=== PATIENT | female | born 1995 | race Caucasian/White ===

== ENCOUNTER 2017-06-16 00:31 | Emergency (ER) | payer BC, OTHER ==
[2017-06-16 00:38] VITALS: RESP 18
--- NOTE | 2017-06-16 02:40 | ED ---
General Adult HPI - General Chief complaint: Skin/Abscess/Foreign Body Stated complaint: abcess Time Seen by Provider: 06/16/17 02:08 Source: patient, RN notes reviewed Mode of arrival: ambulatory Limitations: no limitations - History of Present Illness Initial comments: Patient 22-year-old female who presents emergency room today with chief complaint of possible dental abscess. She does admit that she's had some increased pain to the right upper side of the gumline. She does admit that she' s felt some drainage and discharge from this area. She states she does not have an appointment with her dentist for 2 days and did not want with a long. She denies any other complaints or symptoms. Patient denies any recent fever, chills, shortness of breath, chest pain, back pain, abdominal pain, nausea or vomiting, numbness or tingling, dysuria or hematuria, constipation or diarrhea, headaches or visual changes, or any other complaints. - Related Data Previous Rx's Medication Instructions Recorded Hydrocodone/Acetaminophen [Clyo 1 each PO Q6HR PRN #10 tab 06/16/17 5-325] Ibuprofen [Motrin] 600 mg PO Q6HR PRN #30 day 06/16/17 Penicillin V Potassium [Pen Vee K] 500 mg PO QID 10 Days 06/16/17 Allergies Allergy/AdvReac Type Severity Reaction Status Date / Time No Known Allergies Allergy Verified 06/16/17 00:37 Review of Systems ROS Statement: Those systems with pertinent positive or pertinent negative responses have been documented in the HPI. ROS Other: All systems not noted in ROS Statement are negative. Past Medical History Past Medical History: No Reported History History of Any Multi-Drug Resistant Organisms: None Reported Past Surgical History: No Surgical Hx Reported Past Psychological History: No Psychological Hx Reported Smoking Status: Never smoker Past Alcohol Use History: Occasional Past Drug Use History: None Reported General Exam - General Exam Comments Initial Comments: General: The patient is awake and alert, in no distress, and does not appear acutely ill. Eye: Pupils are equal, round and reactive to light, extra-ocular movements are intact. No nystagmus. There is normal conjunctiva bilaterally. No signs of icterus. Ears, nose, mouth and throat: There are moist mucous membranes and no oral lesions. Patient does have some redness irritation to the right upper gum line of teeth 2 through 4. Febrile ulcerated areas on the outside of the gums. No obvious abscess. Uvula midline. Patient also having difficulty. Neck: The neck is supple, there is no tenderness or JVD. Cardiovascular: There is a regular rate and rhythm. No murmur, rub or gallop is appreciated. Respiratory: Lungs are clear to auscultation, respirations are non-labored, breath sounds are equal. No wheezes, stridor, rales, or rhonchi. Musculoskeletal: Normal ROM, no tenderness. Strength 5/5. Sensation intact. Pulses equal bilaterally 2+. Neurological: A&O x 3. CN II-XII intact, There are no obvious motor or sensory deficits. Coordination appears grossly intact. Speech is normal. Skin: Skin is warm and dry and no rashes or lesions are noted. Psychiatric: Cooperative, appropriate mood & affect, normal judgment. Limitations: no limitations Course Vital Signs 06/16/17 00:34 Temperature 100.3 F H Pulse Rate 74 Respiratory 18 Rate Blood Pressure 186/80 O2 Sat by Pulse 98 Oximetry Disposition Clinical Impression: Pain, dental Disposition: HOME SELF-CARE Condition: Good Instructions: Toothache (ED) Additional Instructions: Please use medication as discussed. Please follow-up with dentist/family doctor in the next 2 days of symptoms have not improved. Please return to emergency room if the symptoms increase or worsen or for any other concerns. Prescriptions: Hydrocodone/Acetaminophen [Clyo 5-325] 1 each PO Q6HR PRN #10 tab PRN Reason: Pain Ibuprofen [Motrin] 600 mg PO Q6HR PRN #30 day PRN Reason: Pain Penicillin V Potassium [Pen Vee K] 500 mg PO QID 10 Days Referrals: None,Stated [Primary Care Provider] - 1-2 days Time of Disposition: 03:08
[2017-06-16] MEDS ORDERED: IBUPROFEN 600 MG STARTER PACK 4 TAB BTL PO STA (03:06)
[2017-06-16] MEDS ORDERED: PENICILLIN VK 500MG STARTER 4 TAB BTL PO STA (03:06)
[2017-06-16 03:23] VITALS: BP 160/98; PULSE 77; TEMP 98
== END 2017-06-16 03:23 | disposition home or self-care (01) ==
LOC: EC 00:31
DX: K08.89 Other specified disorders of teeth and supporting structures (principal)
CPT/HCPCS: 99282

== ENCOUNTER → 2020-10-17 | Outpatient (CLI) | payer OTHER ==
[2020-10-17 15:09] LABS: Luteinizing Hormone 5.3 mIU/mL
[2020-10-17 15:10] LABS: Estradiol 92.9 pg/mL
== END | disposition home or self-care (01) ==
LOC: LABWHC1 08:18
PROVIDERS: ATTEND Family Medicine
DX: N91.2 Amenorrhea, unspecified (principal)
CPT/HCPCS: 36415; 82533; 82670; 83001; 83002; 84144

== ENCOUNTER 2021-06-29 19:58 | Emergency (ER) | payer OTHER ==
[2021-06-29 20:04] VITALS: TEMP 98.8
[2021-06-29] MEDS ORDERED: KETOROLAC 15 MG/ML 1 ML VIAL IVP STA (20:27)
[2021-06-29] MEDS ORDERED: SODIUM CHLORIDE 0.9% 1,000 ML IV ONE (20:27)
[2021-06-29] MEDS ORDERED: ACETAMINOPHEN TAB 500 MG TAB PO STA (20:33)
--- NOTE | 2021-06-29 20:35 | ED ---
Recheck HPI - General Chief Complaint: Recheck/Abnormal Lab/Rx Stated Complaint: SOB, COVID+ Time Seen by Provider: 06/29/21 20:07 Source: patient Mode of arrival: ambulatory Limitations: no limitations - History of Present Illness Initial Comments: 26 year-old female patient who was diagnosed with COVID yesterday presents to the emergency department for evaluation of dizziness, cough, and shortness of breath. States she started having symptoms on . States today she has felt very flushed and hot. She states that earlier today she has had racing heart. She reports body aches and weakness. Reports some mild nausea and headache. She denies any chronic medical conditions. She does take control and does not think she is . Patient denies any recent rash, abdominal pain, vomiting, diarrhea, constipation, back pain, numbness, tingling, dizziness, weakness, hematuria, dysuria, urinary urgency, urinary frequency, headache, visual changes, or any other complaints. - Related Data Home Medications Medication Instructions Recorded Confirmed Ascorbic Acid [Vitamin C] 1,000 mg PO DAILY 06/29/21 06/29/21 Ibuprofen [Motrin Ib] 600 mg PO Q8H PRN 06/29/21 06/29/21 Norethindrone-E.estradiol-Iron 1 tab PO DAILY 06/29/21 06/29/21 [Aurovela Fe 1.5 mg-30 Mcg Tab] Allergies Allergy/AdvReac Type Severity Reaction Status Date / Time No Known Allergies Allergy Verified 06/29/21 20:18 Review of Systems ROS Statement: Those systems with pertinent positive or pertinent negative responses have been documented in the HPI. ROS Other: All systems not noted in ROS Statement are negative. Past Medical History Past Medical History: No Reported History History of Any Multi-Drug Resistant Organisms: None Reported Past Surgical History: No Surgical Hx Reported Past Psychological History: No Psychological Hx Reported Smoking Status: Former smoker Past Alcohol Use History: Occasional Past Drug Use History: None Reported General Exam Limitations: no limitations General appearance: alert, in no apparent distress, other (This is a well- developed, well-nourished adult female patient in no acute distress. Vital signs upon presentation are temperature 98.8F, pulse 102, respirations 18, blood pressure 133/91, pulse ox 97% on room air.) Eye exam: Present: normal appearance, PERRL, EOMI. Absent: scleral icterus, conjunctival injection, periorbital swelling ENT exam: Present: normal exam, normal oropharynx, mucous membranes moist Respiratory exam: Present: normal lung sounds bilaterally. Absent: respiratory distress, wheezes, rales, rhonchi, stridor Cardiovascular Exam: Present: normal rhythm, tachycardia, normal heart sounds. Absent: systolic murmur, diastolic murmur, rubs, gallop, clicks GI/Abdominal exam: Present: soft, normal bowel sounds. Absent: distended, tenderness, guarding, rebound, rigid Neurological exam: Present: alert, oriented X3, CN II-XII intact Psychiatric exam: Present: normal affect, normal mood Skin exam: Present: warm, dry, intact, normal color. Absent: rash Course Vital Signs 06/29/21 06/29/21 06/29/21 20:01 20:25 21:23 Temperature 98.8 F Pulse Rate 102 H 73 Respiratory 18 24 20 Rate Blood Pressure 133/91 O2 Sat by Pulse 97 99 Oximetry Medical Decision Making - Medical Decision Making 26 year-old female patient presents for evaluation of shortness of breath and racing heart. She did test positive for COVID at [facility], I was able to verify paperwork at the bedside. She'll be criteria to receive regenerate. She was infused did not have any complications. She was given IV fluids, Toradol, Tylenol. Upon reevaluation she is resting comfortable. She'll be discharged to follow-up with her primary care physician in one to 2 days. Return parameters discussed in detail. She verbalizes understanding and agrees with this plan. Case discussed with my attending Dr. Mehta. - Lab Data Lab Results 06/29/21 Range/Units 20:52 Urine HCG, Qual Not Detected (Not Detectd) Disposition Clinical Impression: COVID-19 Disposition: HOME SELF-CARE Condition: Good Instructions (If sedation given, give patient instructions): Coronavirus Disease 2019 (COVID-19) Additional Instructions: Alternate Tylenol and Motrin. Increase fluids. Rest. Follow-up with your primary care physician for recheck in 1-2 days. Return to the emergency department for any new, worsening, or concerning symptoms. Is patient prescribed a controlled substance at d/c from ED?: No Referrals: Myra Butler MD [Primary Care Provider] - 1-2 days Time of Disposition: 23:05
[2021-06-29] MEDS ORDERED: CASIRIVIMAB/IMDEVIMAB (EUA) 1,200 MG in SODIUM CHLORIDE 0.9% 100 ML IVPB ONE (21:00)
[2021-06-29] MEDS ORDERED: SODIUM CHLORIDE 0.9% 50 ML IVPB ONE (21:30)
[2021-06-29 23:19] VITALS: BP 127/89; PULSE 65; RESP 17
== END 2021-06-29 23:19 | disposition home or self-care (01) ==
LOC: EC 19:58
DX: U07.1 COVID-19 (principal); Z87.891 Personal history of nicotine dependence; Z79.1 Long term (current) use of non-steroidal anti-inflammatories (NSAID)
CPT/HCPCS: 81025; 96365; 96375; 99284; J1885; Q0243

== ENCOUNTER 2021-07-05 15:38 | Emergency (ER) | payer OTHER ==
--- NOTE | 2021-07-05 17:34 | XR ---
EXAMINATION TYPE: XR chest 1V DATE OF EXAM: 07/05/2021 CLINICAL HISTORY: dyspnea, COVID. TECHNIQUE: Portable frontal view of the chest. COMPARISON: None FINDINGS: The cardiomediastinal silhouette is within normal limits for size. Pulmonary vasculature i s normal. There is no focal air space opacity. No pleural effusion. No pneumothorax seen. No acute d isplaced osseous fracture. IMPRESSION: No acute cardiopulmonary process.
[2021-07-05 17:43] LABS: Basophils % (A) 0 %; Eosinophils # (A) 0.1 k/uL (0-0.7); Eosinophils % (A) 1 %; HCT 43.6 % (34.0-46.0); HGB 15.5 gm/dL (11.4-16.0); Lymphocytes # (A) 2.9 k/uL (1.0-4.8); Lymphocytes % (A) 30 %; MCH 30.2 pg (25.0-35.0); MCHC 35.5 g/dL (31.0-37.0); MCV 85.1 fL (80.0-100.0); Mean Platelet Volume 7.9; Monocytes # (A) 0.6 k/uL (0-1.0); Monocytes % (A) 7 %; Neutrophils # (A) 5.9 k/uL (1.3-7.7); Neutrophils % (A) 61 %; Platelet Count 328 k/uL (150-450); RBC 5.12 m/uL (3.80-5.40); RDW 12.1 % (11.5-15.5); WBC 9.7 k/uL (3.8-10.6)
[2021-07-05 17:57] LABS: ALT 47 U/L (4-34); AST 47 U/L (14-36); African American GFR (CKD) >90 (>60 ml/min/1.73 sqM); Albumin 4.6 g/dL (3.5-5.0); Alkaline Phosphatase 71 U/L (38-126); Anion Gap 11 mmol/L; Blood Urea Nitrogen 14 mg/dL (7-17); Calcium 10.2 mg/dL (8.4-10.2); Carbon Dioxide 20 mmol/L (22-30); Chloride 107 mmol/L (98-107); Glucose 101 mg/dL (74-99); Non-African American GFR(CKD) >90 (>60 ml/min/1.73 sqM); Potassium 4.1 mmol/L (3.5-5.1); Sodium 138 mmol/L (137-145); Total Bilirubin 0.8 mg/dL (0.2-1.3); Total Protein 8.1 g/dL (6.3-8.2)
--- NOTE | 2021-07-05 18:06 | ED ---
SOB HPI <Johny Guillory - Last Filed: 07/05/21 20:12> - General Source: patient Mode of arrival: ambulatory Limitations: no limitations <Karina Bhat - Last Filed: 07/05/21 21:41> - General Chief Complaint: Shortness of Breath Stated Complaint: Covid+/sob Time Seen by Provider: 07/05/21 17:09 - History of Present Illness Initial Comments: Hannah a 26-year-old female who presents the ER today via private vehicle for reevaluation of persistent COVID symptoms. Patient was diagnosed with COVID on June 28, she received monoclonal antibody infusion. She reports that for the past couple of days she has persistent shortness of breath and palpitations. Patient states that sometimes she'll feel like she can't breathe and then chills or breathing fast and her hand and face and feet started tingling. She also states she feels like her heart is beating too hard. She has no pain in her chest she is just very aware of her heart beat. (Karina Bhat) - Related Data Home Medications Medication Instructions Recorded Confirmed Norethindrone-E.estradiol-Iron 1 tab PO DAILY 06/29/21 07/05/21 [Aurovela Fe 1.5 mg-30 Mcg Tab] Acetaminophen Tab [Tylenol Tab] 1,000 mg PO Q6HR PRN 07/05/21 07/05/21 Allergies Allergy/AdvReac Type Severity Reaction Status Date / Time No Known Allergies Allergy Verified 07/05/21 17:46 Review of Systems ROS Other: All systems not noted in ROS Statement are negative. <Johny Guillory - Last Filed: 07/05/21 20:12> ROS Other: All systems not noted in ROS Statement are negative. <Karina Bhat - Last Filed: 07/05/21 21:41> ROS Statement: Those systems with pertinent positive or pertinent negative responses have been documented in the HPI. Past Medical History Past Medical History: No Reported History Additional Past Medical History / Comment(s): covid 07/16 History of Any Multi-Drug Resistant Organisms: None Reported Past Surgical History: No Surgical Hx Reported Past Psychological History: No Psychological Hx Reported Smoking Status: Former smoker Past Alcohol Use History: Occasional Past Drug Use History: None Reported <Karina Bhat - Last Filed: 07/05/21 21:41> General Exam Limitations: no limitations <Karina Bhat - Last Filed: 07/05/21 21:41> - General Exam Comments Initial Comments: Physical Exam GENERAL: Patient is well-developed and well-nourished. Patient is nontoxic and well- hydrated and is in no distress. HENT: Normocephalic, Atraumatic. EYES: PERRL, EOMI PULMONARY: Unlabored respirations. No audible rales rhonchi or wheezing was noted. CARDIOVASCULAR: There is a regular rate and rhythm without any murmurs gallops or rubs. ABDOMEN: Soft and nontender with normal bowel sounds. SKIN: Skin is clear with no lesions or rashes and otherwise unremarkable. : Deferred NEUROLOGIC: Patient is alert and oriented x3. Moving all extremities spontaneously Patient has stutter, worse with nervousness MUSCULOSKELETAL: Normal extremities with adequate strength and full range of motion. No lower extremity swelling or edema. No calf tenderness. PSYCHIATRIC: Nervous (Karina Bhat) Course Vital Signs 07/05/21 07/05/21 07/05/21 16:45 17:30 18:30 Temperature 99.3 F 97.8 F Pulse Rate 103 H 87 Pulse Rate [ 100 Pulse Oximetery ] Respiratory 22 18 20 Rate Blood Pressure 123/79 126/77 O2 Sat by Pulse 98 98 Oximetry 07/05/21 07/05/21 19:30 20:52 Temperature 97.8 F Pulse Rate 90 90 Pulse Rate [ Pulse Oximetery ] Respiratory 20 20 Rate Blood Pressure 122/80 124/76 O2 Sat by Pulse 98 98 Oximetry Medical Decision Making - Lab Data Result diagrams: 07/05/21 17:30 07/05/21 17:30 <Johny Guillory - Last Filed: 07/05/21 20:12> - Lab Data Result diagrams: 07/05/21 17:30 07/05/21 17:30 - EKG Data -: EKG Interpreted by Ok <Karina Bhat - Last Filed: 07/05/21 21:41> - Medical Decision Making Patient was seen and evaluated history was obtained from patient mother him a history and physical exam are relatively unremarkable patient is hemodynamically stable not tachypneic or tachycardic there is no hypoxia Labs were obtained were unremarkable chest x-ray was unremarkable patient's heart rate oxygenation remained stable throughout stay in ER Discussed with patient palpitations are likely just infective having had COVID recommended she follow the [facility] for any persistent symptoms mother has extensive cardiac history (Karina Bhat) - Lab Data Lab Results 07/05/21 07/05/21 07/05/21 Range/Units 17:30 17:30 17:30 WBC 9.7 (3.8-10.6) k/uL RBC 5.12 (3.80-5.40) m/uL Hgb 15.5 (11.4-16.0) gm/dL Hct 43.6 (34.0-46.0) % MCV 85.1 (80.0-100.0) fL MCH 30.2 (25.0-35.0) pg MCHC 35.5 (31.0-37.0) g/dL RDW 12.1 (11.5-15.5) % Plt Count 328 (150-450) k/uL MPV 7.9 Neutrophils % 61 % Lymphocytes % 30 % Monocytes % 7 % Eosinophils % 1 % Basophils % 0 % Neutrophils # 5.9 (1.3-7.7) k/uL Lymphocytes # 2.9 (1.0-4.8) k/uL Monocytes # 0.6 (0-1.0) k/uL Eosinophils # 0.1 (0-0.7) k/uL Basophils # 0.0 (0-0.2) k/uL D-Dimer 0.34 (<0.60) mg/L FEU Sodium 138 (137-145) mmol/L Potassium 4.1 (3.5-5.1) mmol/L Chloride 107 (98-107) mmol/L Carbon Dioxide 20 L (22-30) mmol/L Anion Gap 11 mmol/L BUN 14 (7-17) mg/dL Creatinine 0.61 (0.52-1.04) mg/dL Est GFR (CKD-EPI)AfAm >90 (>60 ml/min/1.73 sqM) Est GFR (CKD-EPI)NonAf >90 (>60 ml/min/1.73 sqM) Glucose 101 H (74-99) mg/dL Calcium 10.2 (8.4-10.2) mg/dL Total Bilirubin 0.8 (0.2-1.3) mg/dL AST 47 H (14-36) U/L ALT 47 H (4-34) U/L Alkaline Phosphatase 71 (38-126) U/L Troponin I (0.000-0.034) ng/mL Total Protein 8.1 (6.3-8.2) g/dL Albumin 4.6 (3.5-5.0) g/dL 07/05/21 Range/Units 17:30 WBC (3.8-10.6) k/uL RBC (3.80-5.40) m/uL Hgb (11.4-16.0) gm/dL Hct (34.0-46.0) % MCV (80.0-100.0) fL MCH (25.0-35.0) pg MCHC (31.0-37.0) g/dL RDW (11.5-15.5) % Plt Count (150-450) k/uL MPV Neutrophils % % Lymphocytes % % Monocytes % % Eosinophils % % Basophils % % Neutrophils # (1.3-7.7) k/uL Lymphocytes # (1.0-4.8) k/uL Monocytes # (0-1.0) k/uL Eosinophils # (0-0.7) k/uL Basophils # (0-0.2) k/uL D-Dimer (<0.60) mg/L FEU Sodium (137-145) mmol/L Potassium (3.5-5.1) mmol/L Chloride (98-107) mmol/L Carbon Dioxide (22-30) mmol/L Anion Gap mmol/L BUN (7-17) mg/dL Creatinine (0.52-1.04) mg/dL Est GFR (CKD-EPI)AfAm (>60 ml/min/1.73 sqM) Est GFR (CKD-EPI)NonAf (>60 ml/min/1.73 sqM) Glucose (74-99) mg/dL Calcium (8.4-10.2) mg/dL Total Bilirubin (0.2-1.3) mg/dL AST (14-36) U/L ALT (4-34) U/L Alkaline Phosphatase (38-126) U/L Troponin I <0.012 (0.000-0.034) ng/mL Total Protein (6.3-8.2) g/dL Albumin (3.5-5.0) g/dL - EKG Data EKG Comments: EEG was obtained due to complaint of palpitations, EKG obtained in 194 rate is 74 rhythm sinus normal axis normal intervals no acute ST elevations or depressions no evidence of ischemia infarction or arrhythmia. (Karina Bhat) Disposition Is patient prescribed a controlled substance at d/c from ED?: No <Johny Guillory - Last Filed: 07/05/21 20:12> Is patient prescribed a controlled substance at d/c from ED?: No <Karina Bhat - Last Filed: 07/05/21 21:41> Clinical Impression: COVID-19, Heart palpitations Disposition: HOME SELF-CARE Condition: Stable Instructions (If sedation given, give patient instructions): Heart Palpitations (DC) Referrals: Myra Butler MD [Primary Care Provider] - 1-2 days
[2021-07-05 20:51] VITALS: RESP 20; TEMP 97.8
[2021-07-05 20:52] VITALS: PULSE 90
[2021-07-05 20:53] VITALS: BP 124/76
== END 2021-07-05 20:52 | disposition home or self-care (01) ==
LOC: EC 15:38
DX: U07.1 COVID-19 (principal); R00.2 Palpitations; Z87.891 Personal history of nicotine dependence
CPT/HCPCS: 36415; 71045; 80053; 84484; 85025; 85379; 93005; 99285

== ENCOUNTER 2022-01-23 16:50 | Emergency (ER) | payer OTHER ==
[2022-01-23 17:04] VITALS: TEMP 97
[2022-01-23] MEDS ORDERED: SODIUM CHLORIDE 0.9% 500 ML 500 ML IV STA (17:22)
--- NOTE | 2022-01-23 17:36 | ED ---
General Adult HPI - General Chief complaint: Abdominal Pain Stated complaint: 17 weeks , abd pain & back pain Time Seen by Provider: 01/23/22 17:25 Source: patient, family, RN notes reviewed, old records reviewed Mode of arrival: ambulatory Limitations: no limitations - History of Present Illness Initial comments: This is a well-appearing 26-year-old female that presents with family member complaining of lower abdominal pain since yesterday. Patient states that she was running through the yard chasing her dogs that were killing her chickens when the pain started. She states that she is 17 weeks with her first child. She denies any medical history, only taking vitamins daily. She is nonsmoker. She denies any vaginal discharge, vaginal bleeding or dysuria. No fevers, no nausea, vomiting or diarrhea. -: days(s) (1) Location: abdomen (lower abdominal) Radiation: non-radiation Severity scale (1-10): 9 Quality: aching Improves with: none Worsens with: none Associated Symptoms: denies other symptoms Treatments Prior to Arrival: none - Related Data Home Medications Medication Instructions Recorded Confirmed Acetaminophen Tab [Tylenol Tab] 1,000 mg PO Q6HR PRN 07/05/21 01/23/22 Fso-Pqfc-Owjdf Acid 1 cap PO DAILY 01/23/22 01/23/22 [-U Capsule (formulary)] Allergies Allergy/AdvReac Type Severity Reaction Status Date / Time No Known Allergies Allergy Verified 01/23/22 18:24 Review of Systems ROS Statement: Those systems with pertinent positive or pertinent negative responses have been documented in the HPI. ROS Other: All systems not noted in ROS Statement are negative. Past Medical History Past Medical History: No Reported History Additional Past Medical History / Comment(s): covid 07/16 History of Any Multi-Drug Resistant Organisms: None Reported Past Surgical History: No Surgical Hx Reported Past Psychological History: No Psychological Hx Reported Smoking Status: Former smoker Past Alcohol Use History: Occasional Past Drug Use History: None Reported General Exam Limitations: no limitations General appearance: alert, in no apparent distress Head exam: Present: atraumatic, normocephalic, normal inspection Eye exam: Present: normal appearance. Absent: scleral icterus, conjunctival injection ENT exam: Present: normal exam, normal oropharynx, mucous membranes moist Neck exam: Present: normal inspection, full ROM. Absent: tenderness, meningismus, lymphadenopathy, thyromegaly Respiratory exam: Present: normal lung sounds bilaterally. Absent: respiratory distress, accessory muscle use Cardiovascular Exam: Present: regular rate, normal rhythm, normal heart sounds. Absent: JVD GI/Abdominal exam: Present: soft. Absent: distended, tenderness Extremities exam: Present: normal inspection, full ROM. Absent: tenderness, nor mal capillary refill, pedal edema Back exam: Present: normal inspection, full ROM. Absent: tenderness, CVA tenderness (R), CVA tenderness (L), rash noted Neurological exam: Present: alert, oriented X3, other (Stutter) Psychiatric exam: Present: normal affect, normal mood Skin exam: Present: warm, dry, intact, normal color. Absent: rash, cyanosis, diaphoretic, erythema, petechiae, pallor Course Vital Signs 01/23/22 01/23/22 01/23/22 17:01 18:03 19:17 Temperature 97 F L Pulse Rate 99 76 Respiratory 16 18 Rate Blood Pressure 158/93 141/83 139/78 O2 Sat by Pulse 97 98 Oximetry Medical Decision Making - Medical Decision Making 26-year-old female presents with lower abdominal pain after running the arch of her dogs yesterday. She is 17 weeks and has an appointment with her [facility] in the next 2 weeks. Abdomen is soft and nontender upon exam. Patient denies any vaginal bleeding or vaginal discharge. Hemoglobin and hematocrit are stable. Electrolytes are unremarkable. Urinalysis shows no evidence of infection. No proteinuria. Patient denies any headaches or visual changes. Ultrasound shows single IUP measuring 17 weeks 1 day with a heart rate of 149. Patient was given Tylenol and IV fluids and states is feeling better. Vital signs are stable. This is likely abdominal muscle strain from running through the yard. Patient has no vaginal bleeding or spotting. No cramping. She has an upcoming appointment with her [facility] [employer]. Instructed to return to the emergency room with a new or concerning symptoms. Case discussed with Dr. Juan - Lab Data Result diagrams: 01/23/22 17:51 01/23/22 17:51 Lab Results 01/23/22 01/23/22 01/23/22 Range/Units 17:51 17:51 18:27 WBC 14.4 H (3.8-10.6) k/uL RBC 4.19 (3.80-5.40) m/uL Hgb 12.6 (11.4-16.0) gm/dL Hct 37.4 (34.0-46.0) % MCV 89.3 (80.0-100.0) fL MCH 30.0 (25.0-35.0) pg MCHC 33.6 (31.0-37.0) g/dL RDW 12.8 (11.5-15.5) % Plt Count 290 (150-450) k/uL MPV 8.0 Neutrophils % 81 % Lymphocytes % 12 % Monocytes % 4 % Eosinophils % 2 % Basophils % 0 % Neutrophils # 11.6 H (1.3-7.7) k/uL Lymphocytes # 1.7 (1.0-4.8) k/uL Monocytes # 0.6 (0-1.0) k/uL Eosinophils # 0.3 (0-0.7) k/uL Basophils # 0.1 (0-0.2) k/uL Sodium 135 L (137-145) mmol/L Potassium 3.7 (3.5-5.1) mmol/L Chloride 104 (98-107) mmol/L Carbon Dioxide 21 L (22-30) mmol/L Anion Gap 10 mmol/L BUN 8 (7-17) mg/dL Creatinine 0.51 L (0.52-1.04) mg/dL Est GFR (CKD-EPI)AfAm >90 (>60 ml/min/1.73 sqM) Est GFR (CKD-EPI)NonAf >90 (>60 ml/min/1.73 sqM) Glucose 104 H (74-99) mg/dL Calcium 8.9 (8.4-10.2) mg/dL Magnesium 1.7 (1.6-2.3) mg/dL Total Bilirubin 0.4 (0.2-1.3) mg/dL AST 22 (14-36) U/L ALT 21 (4-34) U/L Alkaline Phosphatase 50 (38-126) U/L Lactate Dehydrogenase 364 (313-618) U/L Total Protein 7.0 (6.3-8.2) g/dL Albumin 3.8 (3.5-5.0) g/dL Urine Color Yellow Urine Appearance Cloudy H (Clear) Urine pH 6.0 (5.0-8.0) Ur Specific [place] 1.021 (1.001-1.035) Urine Protein Negative (Negative) Urine Glucose (UA) Negative (Negative) Urine Ketones Trace H (Negative) Urine Blood Negative (Negative) Urine Nitrite Negative (Negative) Urine Bilirubin Negative (Negative) Urine Urobilinogen <2.0 (<2.0) mg/dL Ur Leukocyte Esterase Moderate H (Negative) Urine RBC 1 (0-5) /hpf Urine WBC 2 (0-5) /hpf Ur Squamous Epith Cells 6 H (0-4) /hpf Urine Bacteria Few H (None) /hpf Urine Mucus Rare H (None) /hpf Disposition Clinical Impression: Musculoskeletal strain, Abdominal pain, Disposition: HOME SELF-CARE Instructions (If sedation given, give patient instructions): Abdominal Pain (ED), Musculoskeletal Pain (ED) Additional Instructions: Rest, increase fluid intake and take Tylenol as needed for pain. Return to the emergency room with any new or concerning symptoms including increased pain, vaginal bleeding, or cramping. Follow-up with your [facility] as scheduled. Is patient prescribed a controlled substance at d/c from ED?: No Referrals: Myra Butler MD [Primary Care Provider] - 1-2 days Chelsea Engle DO [Doctor of Osteopathic Medicine] - 1-2 days Time of Disposition: 19:07
[2022-01-23 18:02] LABS: Basophils # (A) 0.1 k/uL (0-0.2); Basophils % (A) 0 %; Eosinophils # (A) 0.3 k/uL (0-0.7); Eosinophils % (A) 2 %; HCT 37.4 % (34.0-46.0); HGB 12.6 gm/dL (11.4-16.0); Lymphocytes # (A) 1.7 k/uL (1.0-4.8); Lymphocytes % (A) 12 %; MCHC 33.6 g/dL (31.0-37.0); MCV 89.3 fL (80.0-100.0); Monocytes # (A) 0.6 k/uL (0-1.0); Monocytes % (A) 4 %; Neutrophils # (A) 11.6 k/uL (1.3-7.7); Neutrophils % (A) 81 %; Platelet Count 290 k/uL (150-450); RBC 4.19 m/uL (3.80-5.40); RDW 12.8 % (11.5-15.5); WBC 14.4 k/uL (3.8-10.6)
[2022-01-23 18:16] LABS: ALT 21 U/L (4-34); AST 22 U/L (14-36); African American GFR (CKD) >90 (>60 ml/min/1.73 sqM); Albumin 3.8 g/dL (3.5-5.0); Alkaline Phosphatase 50 U/L (38-126); Anion Gap 10 mmol/L; Blood Urea Nitrogen 8 mg/dL (7-17); Calcium 8.9 mg/dL (8.4-10.2); Carbon Dioxide 21 mmol/L (22-30); Chloride 104 mmol/L (98-107); Glucose 104 mg/dL (74-99); LDH 364 U/L (313-618); Magnesium 1.7 mg/dL (1.6-2.3); Non-African American GFR(CKD) >90 (>60 ml/min/1.73 sqM); Potassium 3.7 mmol/L (3.5-5.1); Sodium 135 mmol/L (137-145); Total Bilirubin 0.4 mg/dL (0.2-1.3)
[2022-01-23 18:47] LABS: Appearance,Urine Cloudy (Clear); Bacteria,Urine Few /hpf; Bilirubin,Urine Negative (Negative); Blood,Urine Negative (Negative); Color,Urine Yellow; Glucose,Urine (UA) Negative (Negative); Ketones,Urine Trace (Negative); Leukocyte Esterase,Urine Moderate (Negative); Mucus,Urine Rare /hpf; Nitrite,Urine Negative (Negative); Protein,Urine Negative (Negative); RBC,Urine 1 /hpf (0-5); Specific Gravity,Urine 1.021 (1.001-1.035); Squamous Epithelial Cell,Urine 6 /hpf (0-4); Urobilinogen,Urine <2.0 mg/dL (<2.0); WBC,Urine 2 /hpf (0-5)
--- NOTE | 2022-01-23 18:49 | US ---
EXAMINATION TYPE: US OB >= 14 wk fetus DATE OF EXAM: 01/23/2022 COMPARISON: None CLINICAL HISTORY: abd painPatient states she is having back pain and thinks she pulled a muscle. TECHNIQUE: Transabdominal (TA) GESTATIONAL AGE / DATING Physician Established: (17 weeks/0 days) EDC: 07/03/22 Dates by First Scan: No previous this is first scan here. Dates by Current Scan: (17 weeks/1 days) EDC: 07/02/22 Beta HCG (if available): Not available at this time SURVEY IUP: Single PLACENTA: Posterior PREVIA: No Previa CERVICAL LENGTH (transabdominal: norm > 3.0cm): 3.12 cm BIOMETRY PRESENTATION: Breech LIE: Longitudinal BPD: 3.54 cm 17 weeks / 0 days HC: 13.45 cm 17 weeks / 0 days AC: 11.45 cm 17 weeks / 2 days FL: 2.32 cm 17 weeks / 0 days ESTIMATED WEIGHT IN GRAMS: 181 grams ESTIMATED WEIGHT IN LBS/OZ: 0 lbs. 6 oz. WEIGHT PERCENTAGE BASED ON ESTABLISHED DATES: 49% HC/AC: 1.17 Normal FL/AC: 20% HEART RATE: 149 bpm RHYTHM: normal MATERNAL WALL MEASUREMENT: 4.5 cm from skin to anterior uterine wall (if exam limited due to body hab itus). IMPRESSION: 1. Single live intrauterine gestation with calculated ultrasound average of 17 weeks and 1 day estima sheila date of delivery 07/02/2022. 2. Routine anatomic survey at a dedicated imaging provider is recommended at 18-20 weeks.
[2022-01-23] MEDS ORDERED: ACETAMINOPHEN TAB 500 MG TAB PO STA (19:03)
[2022-01-23 19:18] VITALS: BP 139/78; PULSE 76; RESP 18
== END 2022-01-23 20:42 | disposition home or self-care (01) ==
LOC: EC 16:50
DX: O9A.212 Injury, poisoning and certain other consequences of external causes complicating pregnancy, second trimester (principal); S39.011A Strain of muscle, fascia and tendon of abdomen, initial encounter; Z87.891 Personal history of nicotine dependence; Z3A.17 17 weeks gestation of pregnancy; X58.XXXA Exposure to other specified factors, initial encounter; Y93.01 Activity, walking, marching and hiking
CPT/HCPCS: 36415; 76805; 80053; 81001; 83615; 83735; 85025; 99284

== ENCOUNTER 2022-03-15 00:42 | Emergency (ER) | payer OTHER ==
[2022-03-15] MEDS ORDERED: ACETAMINOPHEN TAB 500 MG TAB PO STA (02:07)
--- NOTE | 2022-03-15 02:52 | ED ---
URI HPI - General Chief Complaint: Upper Respiratory Infection Stated Complaint: Covid+, 25wks preg Time Seen by Provider: 03/15/22 01:59 Source: patient, RN notes reviewed Mode of arrival: ambulatory Limitations: no limitations - History of Present Illness Initial Comments: Patient presents with symptoms consistent with viral syndrome and upper respiratory symptoms for the last 2 or 3 days. Describing runny nose, cough, body aches, mild sore throat, mild headache, and some loss taste and smell. Patient had a bad case of COVID-19 last year. Patient presents with the intent to get the monoclonal antibody as she is 25 weeks . Patient had 3 positive test at home. Patient denies any abdominal pain. No vaginal bleeding. No vaginal discharge. Mild subjective fever, no changes in vision or hearing, no sore throat or difficulty with speech, no neck pain, no chest pain or shortness of breath, no abdominal pain, no nausea or vomiting, some diarrhea. No changes in urination or bowel movements, no numbness or tingling, no extremity pain, no skin rashes or lesions. MD Complaint: fever, cough, rhinorrhea, nasal congestion, other (Body aches) - Related Data Home Medications Medication Instructions Recorded Confirmed Acetaminophen Tab [Tylenol Tab] 1,000 mg PO Q6HR PRN 07/05/21 01/23/22 Bvs-Sgrl-Xkuln Acid 1 cap PO DAILY 01/23/22 01/23/22 [-U Capsule (formulary)] Allergies Allergy/AdvReac Type Severity Reaction Status Date / Time No Known Allergies Allergy Verified 03/15/22 00:46 Review of Systems ROS Statement: Those systems with pertinent positive or pertinent negative responses have been documented in the HPI. ROS Other: All systems not noted in ROS Statement are negative. Past Medical History Past Medical History: No Reported History Additional Past Medical History / Comment(s): covid 07/16 History of Any Multi-Drug Resistant Organisms: None Reported Past Surgical History: No Surgical Hx Reported Past Psychological History: No Psychological Hx Reported Smoking Status: Former smoker Past Alcohol Use History: Occasional Past Drug Use History: None Reported General Exam - General Exam Comments Initial Comments: Patient does not appear to be ill or toxic. Limitations: no limitations General appearance: alert, in no apparent distress Head exam: Present: atraumatic, normocephalic, normal inspection Eye exam: Present: normal appearance, PERRL, EOMI. Absent: scleral icterus, conjunctival injection, periorbital swelling ENT exam: Present: normal exam, normal oropharynx, mucous membranes dry, mucous membranes moist, TM's normal bilaterally, normal external ear exam Neck exam: Present: normal inspection, full ROM. Absent: tenderness, meningismus, lymphadenopathy Respiratory exam: Present: normal lung sounds bilaterally. Absent: respiratory distress, wheezes, rales, rhonchi, stridor Cardiovascular Exam: Present: regular rate, normal rhythm, normal heart sounds. Absent: systolic murmur, diastolic murmur, rubs, gallop, clicks GI/Abdominal exam: Present: soft, normal bowel sounds, other (Gravid uterus consistent with dates). Absent: distended, tenderness, guarding, rebound, rigid Extremities exam: Present: normal inspection, full ROM, normal capillary refill. Absent: tenderness, pedal edema, joint swelling, calf tenderness Back exam: Present: normal inspection Neurological exam: Present: alert, oriented X3, CN II-XII intact Psychiatric exam: Present: normal affect, normal mood Skin exam: Present: warm, dry, intact, normal color. Absent: rash Course Vital Signs 03/15/22 00:44 Temperature 98.6 F Pulse Rate 102 H Respiratory 20 Rate Blood Pressure 147/75 O2 Sat by Pulse 95 Oximetry Medical Decision Making - Medical Decision Making heart tones obtained. Patient in no distress. Had no vaginal discharge or vaginal leakage. No evidence of respiratory distress. We'll order the monoclonal antibody. Discussed benefits versus risks. Patient and understanding. Requesting medication. Patient was told to return to the ER for any signs or symptoms worsen. Told to return immediately if any other problems arise. All questions answered. Treatment plan discussed. Patient in agreement Every effort has been made to ensure accuracy of this dictation. However, due to the limitations of electronic medical records and dictation devices, errors in charting still occur. The case was discussed in detail with ED attending physician. Presentation, findings, treatment plan discussed in detail. Fire Sprinkler Installer Dr. Esqueda - Lab Data Lab Results 03/15/22 Range/Units 02:08 Coronavirus (PCR) Detected A (Not Detectd) Disposition Clinical Impression: COVID-19 Disposition: HOME SELF-CARE Condition: Good Instructions (If sedation given, give patient instructions): Coronavirus Disease 2019 (COVID-19) Additional Instructions: SELF QUARANTINE DISCHARGE: As you are at risk for symptoms due to coronavirus, please stay home and stay away from others as much as possible. Please maintain social distance of 6 feet if possible. You should not return to work until at least 3 days (72 hours) have passed since recovery of symptoms. This defined as resolution of fever without the use of fever reducing medicines and improvement in respiratory symptoms (e.g,, cough, shortness of breath) Isolation can end at least 5 days after symptom onset and after fever ends for 24 hours (without the use of fever-reducing medication) and symptoms are improving, if these people can continue to properly wear a well-fitted mask around others for 5 more days after the 5-day isolation period. If you're still having symptoms at the end of 5 day period, isolate for an additional 5 days. More information about what to do if you are sick can be found on the CDC website at https://www.cdc.gov/coronavirus/2019-ncov/qg-zxt-jqv-sick/iezml-zihf-cyvm.html Expect the symptoms to last for 7-14 days from onset. Use acetaminophen (Tylenol) as needed for discomfort. You can take a maximum of 1 gram every 6 hours for discomfort, with your total dose in 24 hours not exceeding 4 grams. Be sure to maintain hydration. Drink continuous water and/or items high in vitamin C, such as orange juice and/or lemonade. 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 For Nausea /Vomiting/Diarrhea associated with your Illness: o Small frequent sips of room temperature liquids. o Diet: [place] Foods - If you are still experiencing discomfort and/or nausea please slowly advancing your diet using the BRAT Diet = bananas, rice, apples/apple sauce, toast. o With diarrhea avoid any dairy for 48 hours after symptoms resolved. o Continue with activity as tolerated. If your symptoms do get worse and you believe that the upper respiratory infection has developed into something else, such as pneumonia or severe dehydration, please return to the emergency department or follow-up with your primary care. But expect to be symptomatic for the days as indicated above Is patient prescribed a controlled substance at d/c from ED?: No Referrals: Myra Butler MD [Primary Care Provider] - 1-2 days Time of Disposition: 02:52
[2022-03-15] MEDS ORDERED: BEBTELOVIMAB (EUA) 175 MG/2 ML VIAL IV ONE (03:00)
[2022-03-15 04:01] LABS: Appearance,Urine Clear (Clear); Bilirubin,Urine Negative (Negative); Blood,Urine Negative (Negative); Color,Urine Yellow; Glucose,Urine (UA) Negative (Negative); Ketones,Urine Negative (Negative); Leukocyte Esterase,Urine Negative (Negative); Nitrite,Urine Negative (Negative); Protein,Urine Trace (Negative); Specific Gravity,Urine 1.023 (1.001-1.035); Urobilinogen,Urine <2.0 mg/dL (<2.0)
[2022-03-15 04:48] VITALS: BP 126/63; PULSE 95; RESP 18; TEMP 98.3
== END 2022-03-15 04:48 | disposition home or self-care (01) ==
LOC: EC 00:42
DX: U07.1 COVID-19 (principal); Z87.891 Personal history of nicotine dependence
CPT/HCPCS: 81003; 87635; 99284; Q0222

== ENCOUNTER 2022-07-01 06:00 | Inpatient (IN) | payer OTHER ==
--- NOTE | 2022-06-30 09:37 | P.HPOB ---
History of Present Illness H&P Date: 06/30/22 Chief Complaint: Induction of labor This is a 27 y.o. female, 1, para 0, with an estimated date of confinement of 07/03/2022, estimated gestational age of 39-5/7 weeks, who presents for induction of labor. She complains of irregular contractions and pressure. She has been getting more shortness of breath and headaches. Pre-eclamptic work up has been negative. labs: GC/Chlamydia/Trich-neg Hepatitis B surface antigen-neg RPR-NR Rubella-immune Blood type-AB+ Antibody screen-neg HIV-NR Hemoglobin-12.7 Toxoplasma-neg Random glucose-79 Quad-neg 1 hr. GTT-129 GBS-positive OB Hx: Nut Sorter Hx: No hx STDs Social Hx: Sinbgle. Works for [employer] Review of Systems Constitutional: Denies chills, Denies fever Eyes: denies blurred vision, denies pain Ears, nose, mouth and throat: Reports headache, Denies sore throat Cardiovascular: Reports shortness of breath, Denies chest pain Respiratory: Denies cough Gastrointestinal: Reports abdominal pain (irregular contractions) Genitourinary: Reports pelvic pain, Reports Musculoskeletal: Reports low back pain Integumentary: Denies pruritus, Denies rash Neurological: Denies numbness, Denies weakness Psychiatric: Reports anxiety, Denies depression Past Medical History Past Medical History: No Reported History Additional Past Medical History / Comment(s): covid 07/16; Speech impediment History of Any Multi-Drug Resistant Organisms: None Reported Past Surgical History: Adenoidectomy, Tonsillectomy Past Anesthesia/Blood Transfusion Reactions: No Reported Reaction Past Psychological History: No Psychological Hx Reported Smoking Status: Never smoker Past Alcohol Use History: None Reported Past Drug Use History: None Reported - Past Family History Mother Additional Family Medical History / Comment(s): Heart disease Medications and Allergies Home Medications Medication Instructions Recorded Confirmed Type Acetaminophen Tab [Tylenol Tab] 1,000 mg PO Q6HR PRN 07/05/21 06/18/22 History Uja-Bvmt-Ucykn Acid 1 cap PO DAILY 01/23/22 06/18/22 History [-U Capsule (formulary)] Allergies Allergy/AdvReac Type Severity Reaction Status Date / Time No Known Allergies Allergy Verified 08/24/22 17:46 Exam Osteopathic Statement: *. No significant issues noted on an osteopathic structural exam other than those noted in the History and Physical/Consult. HEENT: within normal limits Heart: regular rate and rhythm Lungs: clear to auscultation bilaterally Abdomen: , non-tender Cervix: 1 cm/60%/-2 heart tones: 130's by doppler Extremities: neg. Gaudencio's Assessment and Plan (1) 39 weeks gestation of Status: Acute Code(s): Z3A.39 - 39 WEEKS GESTATION OF SNOMED Code(s): 79635136 (2) Group B Streptococcus carrier, +RV culture, currently Status: Acute Code(s): O99.820 - STREPTOCOCCUS B CARRIER STATE COMPLICATING SNOMED Code(s): 1774185375031 Plan: Proceed with oxytocin induction of labor. Antibiotic prophylaxis for GBS. Expectant management. Epidural anesthesia if desired.
[2022-07-01] MEDS ORDERED: LIDOCAINE 1% (10MG/ML) FOR IV START INTRADERMA PRN (06:46)
[2022-07-01] MEDS ORDERED: OXYTOCIN 30 UNITS/500 ML NS 30 UNIT in SALINE 1 500ML.BAG IV SCH (06:46)
[2022-07-01] MEDS ORDERED: CARBOPROST TROMETHAMINE 250 MCG/ML 1 ML AMP IM PRN (06:46)
[2022-07-01] MEDS ORDERED: TERBUTALINE 1 MG/ML VIAL SQ PRN (06:46)
[2022-07-01] MEDS ORDERED: METHYLERGONOVINE 0.2 MG/ML 1 ML AMP IM PRN (06:46)
[2022-07-01] MEDS ORDERED: AMPICILLIN 2,000 MG in SODIUM CHLORIDE 0.9% 100 ML IVPB STA (06:46)
[2022-07-01] MEDS ORDERED: OXYTOCIN 10 UNIT/ML 1 ML VIAL IM PRN (06:46)
[2022-07-01] MEDS ORDERED: LIDOCAINE 0.5% (PF) 5 MG/ML (50 ML SDV) SQ PRN (06:46)
[2022-07-01] MEDS: LACTATED RINGERS 1,000 ML IV SCH ×2 (07:07→20:05)
[2022-07-01 07:32] LABS: Basophils # (A) 0.1 k/uL (0-0.2); Basophils % (A) 1 %; Eosinophils # (A) 0.2 k/uL (0-0.7); Eosinophils % (A) 1 %; HCT 36.1 % (34.0-46.0); HGB 11.6 gm/dL (11.4-16.0); Lymphocytes # (A) 2.1 k/uL (1.0-4.8); Lymphocytes % (A) 15 %; MCH 26.4 pg (25.0-35.0); MCV 82.5 fL (80.0-100.0); Monocytes # (A) 0.9 k/uL (0-1.0); Monocytes % (A) 6 %; Neutrophils # (A) 10.9 k/uL (1.3-7.7); Neutrophils % (A) 76 %; Platelet Count 260 k/uL (150-450); RBC 4.38 m/uL (3.80-5.40); RDW 14.6 % (11.5-15.5); WBC 14.4 k/uL (3.8-10.6)
[2022-07-01] MEDS: AMPICILLIN 1,000 MG in SODIUM CHLORIDE 0.9% 50 ML IVPB SCH ×2 (11:34→20:04)
[2022-07-01] MEDS ORDERED: ROPIVACAINE 100 MG, fentaNYL (PF). 200 MCG in SODIUM CHLORIDE 0.9% 76 ML EPIDURAL ONE (22:25)
[2022-07-01] MEDS ORDERED: CITRIC ACID-SODIUM CITRATE 15 ML CUP PO ONE (22:39)
[2022-07-01] MEDS ORDERED: ceFAZolin 3 GM in SODIUM CHLORIDE 0.9% 100 ML IVPB ONE (22:40)
[2022-07-01] MEDS ORDERED: ONDANSETRON 4 MG/2 ML VIAL ONE (23:10)
[2022-07-01] MEDS ORDERED: MORPHINE SULFATE (PF) 0.3 MG/0.3 ML SYR ONE (23:10)
[2022-07-01] MEDS ORDERED: OXYTOCIN 30 UNITS/500 ML NS BAG IV ONE (23:10)
--- NOTE | 2022-07-02 00:12 | P.OP ---
Date of Procedure: 07/02/22 Preoperative Diagnosis: 1. Intrauterine at 39-5/7 weeks. 2. Arrest of first stage of labor. 3. Group B streptococcus positive. Postoperative Diagnosis: Same Procedure(s) Performed: Primary low transverse section Anesthesia: epidural (Duramorph) Surgeon: Chelsea Engle Business Information Analyst #1: Freddy [place] Estimated Blood Loss (ml): 800 Pathology: none sent Condition: stable Disposition: floor Indications for Procedure: This is a 27-year-old female 1 para 0 at 39-5/7 weeks who presented for induction of labor. She underwent oxytocin induction of labor and artificial rupture membranes with clear fluid noted. She progressed to a maximum of 3 cm and made no change in over 4 hours despite adequate contractions and maximum oxytocin. She started her labor at 1 cm. She also received nitrous oxide most of the day for pain control and then did receive epidural once she reached 3 cm. At this point the decision was made to proceed with section after discussing in detail risks and benefits of the procedure. The patient was given the opportunity to continue her labor longer but wished to proceed with section. I have discussed the risks, benefits, and alternative therapies for the above- mentioned procedure and for both sedation/anesthesia as well as necessary blood products administration, if indicated, as they pertain to this patient. The patient has indicated her understanding and acceptance of the risks and procedures discussed. Operative Findings: A viable female infant is noted in the occiput posterior position with a slight asynclitic lie. scores are 8 at 1 minute and 9 at 5 minutes and weight is 8 lbs. 4 oz. Nuchal cord times one was noted. Normal uterus tubes and ovaries are noted. Description of Procedure: The patient is taken to the operating room where she is placed in the dorsal supine position with leftward tilt after spinal epidural anesthesia is bolused. She is prepped and draped in the normal sterile fashion. Skin was tested and found to be adequately anesthetized. A Pfannenstiel skin incision was made with a scalpel. A second knife was used to carry the incision down to the underlying layer of fascia. The fascia was nicked in the midline with a scalpel and then extended laterally bilaterally with Rojas scissors. The anterior lip of the fascia was grasped with 2 Agustin clamps and then dissected off the underlying rectus muscle in the midline with Rojas scissors. The inferior aspect of the fascial incision was grasped with 2 Agustin clamps and dissected off the underlying rectus muscle and the midline with Rojas scissors. Next the peritoneum layer was tented up with 2 hemostats and then entered sharply with the scalpel. The incision is extended superiorly and inferiorly with Metzenbaum scissors. Next a DeLee retractor is placed. The vesicouterine peritoneum is entered sharply with Metzenbaum scissors and extended laterally bilaterally with Metzenbaum scissors and then the bladder flap is pushed inferiorly. The lower uterine segment is incised in transverse fashion with the scalpel and then bluntly entered with a hemostat. Clear fluid is noted. The incision was then extended laterally bilaterally with 2 fingers. Next the 's head is delivered through the incision. Nose and mouth are bulb suctioned. Nuchal cord times one was reduced around the 's head. The remainder of the is easily delivered and placed on mother's abdomen. Cord is clamped and cut. Infant is taken to warmer by nursing staff. Uterine fundus is gently massaged and placenta is delivered manually. Uterus is exteriorized and cleared of all clots and debris. Uterine incision is closed with 0 Vicryl suture in a running locked fashion. A second layer of 0 Vicryl suture is used in a running fashion for hemostasis. One interrupted stitches also placed on the left side of the incision for hemostasis. Once adequate hemostasis is assured, the vesicouterine peritoneum is reapproximated with 2-0 Vicryl suture in a running fashion. Posterior cul-de-sac is suctioned of all clots and debris. Uterus is returned to the abdomen. Incision is noted to be hemostatic. Peritoneal layer is closed with 0 Vicryl suture in a running fashion. Muscle layer is reapproximated with 0 Vicryl suture in interrupted fashion. Fascia layer is then closed with 0 PDS suture with 2 sutures meeting in the midline and the knots buried in either side and in the midline. The subcutaneous tissue was then closed with 2-0 Vicryl suture. Skin layer was then closed with bola. All sponge and needle counts are correct. The patient is taken to recovery room in stable condition.
[2022-07-02] MEDS ORDERED: HYDROmorphone PCA 10 MG/50 ML BAG IV PRN (00:18)
[2022-07-02] MEDS ORDERED: LANOLIN CREAM 5 GM TUBE TOPICAL PRN (00:18)
[2022-07-02] MEDS ORDERED: METOCLOPRAMIDE 5 MG/ML 2 ML VIAL IVP PRN (00:18)
[2022-07-02] MEDS ORDERED: diphenhydrAMINE 50 MG CAP PO PRN (00:18)
[2022-07-02] MEDS ORDERED: SIMETHICONE 80 MG CHEWABLE PO PRN (00:18)
[2022-07-02] MEDS ORDERED: NALOXONE 0.4 MG/ML 1 ML VIAL IV PRN ×2 (00:18→03:54)
[2022-07-02] MEDS ORDERED: diphenhydrAMINE 25 MG CAP PO PRN (00:18)
[2022-07-02] MEDS ORDERED: ZOLPIDEM 5 MG TAB PO PRN (00:18)
[2022-07-02] MEDS ORDERED: diphenhydrAMINE 50 MG/ML 1 ML VIAL IVP PRN ×3 (00:18→03:54)
[2022-07-02] MEDS ORDERED: OXYTOCIN 30 UNITS/500 ML NS 30 UNIT in SALINE 1 500ML.BAG IV SCH (00:18)
[2022-07-02] MEDS ORDERED: ONDANSETRON 4 MG/2 ML VIAL IVP PRN ×2 (00:18→03:54)
[2022-07-02] MEDS: ACETAMINOPHEN TAB 500 MG TAB PO SCH ×4 (03:01→22:51)
[2022-07-02] MEDS: LACTATED RINGERS 1,000 ML IV SCH ×3 (03:01→15:48)
[2022-07-02] MEDS: AMPICILLIN 1,000 MG in SODIUM CHLORIDE 0.9% 50 ML IVPB SCH (03:03)
[2022-07-02] MEDS: ACETAMINOPHEN IV (For NPO) 1,000 MG in EMPTY BAG 1 BAG IVPB SCH ×2 (03:10→09:24)
[2022-07-02] MEDS ORDERED: NALBUPHINE 10 MG/ML (1 ML AMP) IV PRN (03:54)
[2022-07-02] MEDS ORDERED: KETOROLAC 15 MG/ML 1 ML VIAL IVP PRN (03:54)
[2022-07-02 06:33] LABS: Basophils % (A) 0 %; Eosinophils # (A) 0.1 k/uL (0-0.7); Eosinophils % (A) 1 %; HCT 33.6 % (34.0-46.0); HGB 10.7 gm/dL (11.4-16.0); Lymphocytes # (A) 1.6 k/uL (1.0-4.8); Lymphocytes % (A) 11 %; MCH 26.3 pg (25.0-35.0); MCHC 31.8 g/dL (31.0-37.0); MCV 82.9 fL (80.0-100.0); Mean Platelet Volume 8.7; Monocytes % (A) 7 %; Neutrophils # (A) 11.5 k/uL (1.3-7.7); Neutrophils % (A) 80 %; Platelet Count 212 k/uL (150-450); RBC 4.06 m/uL (3.80-5.40); RDW 14.8 % (11.5-15.5); WBC 14.4 k/uL (3.8-10.6)
--- NOTE | 2022-07-02 07:34 | P.PN ---
Progress Note - Text Progress Note Date: 07/02/22 Ms. Meyer is a 27 -year-old female had a history of under epidural. Patient received Astramorph 2.5g at the end of the procedure for postoperative pain control. Today patient is comfortable sitting in her bed. Today patient rated her pain level 5-6 out of 10 in severity. Denied any fever, drowsiness, confusion. Denied any weakness, tingling sensation in her lower extremities. Denied any bowel or bladder problems. Moving all extremities without any difficulty. She is complaining of mild itching. As per patient which is bearable. Vitals: Hemodynamically stable Continue oral pain medication as per primary team. No complications related to anesthesia.
[2022-07-02] MEDS: KETOROLAC 15 MG/ML 1 ML VIAL IVP SCH ×2 (07:54→12:57)
--- NOTE | 2022-07-02 09:02 | P.PNOBGPC ---
Subjective - Subjective Principal diagnosis: Status post primary section postoperative day #1 Interval history: Patient is doing okay. She has not ambulated yet. She states she does have some pain but just received a pain medication and IV a few hours ago. She is not passing flatus or bowel movement yet. She is breast-feeding. Patient reports: Reports pain poorly controlled, Denies appetite normal, Denies nauseated : doing well, nursing well Objective - Vital Signs Latest vital signs: Vital Signs Temp Pulse Resp BP Pulse Ox 07/02/22 07:45 98.4 F 96 16 132/72 97 07/02/22 04:00 98.2 F 99 16 114/73 97 07/02/22 02:08 96 18 107/55 100 07/02/22 01:38 97.7 F 94 18 112/56 97 07/02/22 01:08 97.7 F 93 16 131/66 98 07/02/22 00:53 97.7 F 88 16 130/61 99 07/02/22 00:38 99 16 118/62 98 07/02/22 00:23 96 18 98 07/02/22 00:08 97.5 F L 97 18 136/68 100 Intake and Output 07/01/22 07/02/22 07/02/22 22:59 06:59 14:59 Output Total 500 1924 800 Balance -500 -1924 -800 Output: Urine 500 800 800 Uretheral ([place]) 400 Output, Quantitative 1124 Blood Loss Other: Voiding Method Indwelling Catheter - Exam Extremities: Present: normal. Absent: tenderness, edema Abdomen: Present: normal appearance, soft (Positive bowel sounds 4). Absent: distention, tenderness Incision: Present: normal, dry, intact. Absent: erythematous Uterus: Present: normal, firm. Absent: tenderness - Labs Labs: Abnormal Lab Results - Last 24 Hours (Table) 07/02/22 Range/Units 06:14 WBC 14.4 H (3.8-10.6) k/uL Hgb 10.7 L (11.4-16.0) gm/dL Hct 33.6 L (34.0-46.0) % Neutrophils # 11.5 H (1.3-7.7) k/uL Assessment and Plan Assessment: Status post primary section postoperative day #1 (1) 39 weeks gestation of Current Visit: No Status: Acute Code(s): Z3A.39 - 39 WEEKS GESTATION OF SNOMED Code(s): 91608279 (2) Group B Streptococcus carrier, +RV culture, currently Current Visit: No Status: Acute Code(s): O99.820 - STREPTOCOCCUS B CARRIER STATE COMPLICATING SNOMED Code(s): 3817467596908 Plan: Continue with postoperative care today. Will ambulate today. Will work on pain management. Advance diet as tolerated after flatus.
[2022-07-02] MEDS: IBUPROFEN 600 MG TAB PO SCH ×3 (09:18→19:38)
[2022-07-02] MEDS: SENNOSIDES-DOCUSATE SODIUM 1 EACH TAB PO SCH ×2 (09:19→19:47)
[2022-07-02] MEDS: PRENATAL VIT-IRON-FOLIC ACID 1 EACH TABLET PO SCH (09:24)
[2022-07-03] MEDS: IBUPROFEN 600 MG TAB PO SCH ×5 (01:53→23:41)
[2022-07-03] MEDS: LACTATED RINGERS 1,000 ML IV SCH (01:53)
[2022-07-03] MEDS: KETOROLAC 15 MG/ML 1 ML VIAL IVP SCH (03:09)
[2022-07-03] MEDS: ACETAMINOPHEN TAB 500 MG TAB PO SCH ×4 (06:32→20:03)
[2022-07-03] MEDS: SENNOSIDES-DOCUSATE SODIUM 1 EACH TAB PO SCH ×2 (08:00→20:03)
--- NOTE | 2022-07-03 09:43 | P.DS ---
Providers Date of admission: 07/01/22 06:16 Expected date of discharge: 07/03/22 Attending physician: Chelsea Engle Primary care physician: Stated None - Discharge Diagnosis(es) (1) 39 weeks gestation of Current Visit: No Status: Acute (2) Group B Streptococcus carrier, +RV culture, currently Current Visit: No Status: Acute Hospital Course: This is a 27-year-old female 1 para 0 at 39-5/7 weeks who presented for induction of labor. She underwent oxytocin induction of labor and delivered on 07/01/2022 via primary section for failure to progress. She delivered a viable female infant with scores of 8 at 1 minute and 9 at 5 minutes and infant weight of 8 lbs. 4 oz. Her postoperative and course has been uncomplicated. Her pain is better controlled now. She is passing flatus and bowel movement. Lochia is minimal. She is pumping her breastmilk. Vital signs are stable. Abdomen is soft with fundus firm and nontender. Bowel sounds are present 4. Incision is clean dry and intact with bola in place. Extremities show negative Homans. Impression is status post primary low transverse section postoperative day #2. Plan is to discharge home as long as baby is able to go home today. Baby is currently on a bili blanket. Routine postoperative and instructions are given. Bola will be removed and Steri-Strips placed prior to discharge. She is advised follow-up in the office in 1 week for a postoperative check and in 6 weeks for a check. She is advised to call the office if she has any further questions or concerns prior to her appointment time. Procedures: Oxytocin induction of labor Primary low transverse section for delivery of a viable female infant on 07/01/2022 Patient Condition at Discharge: Stable Plan - Discharge Summary New Discharge Prescriptions: New Ibuprofen [Motrin] 600 mg PO Q6H #60 tab oxyCODONE HCL [OxyIR] 5 mg PO Q4HR PRN #18 tab PRN Reason: Pain Continue Xey-Zonk-Ppkdj Acid [-U Capsule (formulary)] 1 cap PO DAILY No Action Acetaminophen Tab [Tylenol Tab] 1,000 mg PO Q6HR PRN PRN Reason: Pain Discharge Medication List Acetaminophen Tab [Tylenol Tab] 1,000 mg PO Q6HR PRN 07/05/21 [History] Rmj-Nuya-Vzfos Acid [-U Capsule (formulary)] 1 cap PO DAILY 01/23/22 [History] Ibuprofen [Motrin] 600 mg PO Q6H #60 tab 07/03/22 [Rx] oxyCODONE HCL [OxyIR] 5 mg PO Q4HR PRN #18 tab 07/03/22 [Rx] Follow up Appointment(s)/Referral(s): Chelsea Engle DO [Doctor of Osteopathic Medicine] - 08/11/22 4:00 pm Activity/Diet/Wound Care/Special Instructions: Instructions 1. Do not begin any exercise program for 3 weeks. 2. Do not resume sexual relations for 3 weeks or longer if uncomfortable. 3. You may take tub baths or showers at any time. 4. You may use tampons if desired after 3 weeks. 5. Keep the area of episiotomy (stitches) clean and dry. 6. If you are not nursing, wear a good fitting, supportive bra during the day and limit fluid intake for at least 1 week to prevent breast engorgement. 7. Call the office, [phone], within the next week to make appointment for your 6 week checkup if it has not already been made. 8. Report any of the following occurrences to the doctor promptly: a. Heavy, excessive bleeding b. Chills, fever c. Burning or frequency of urination d. Pain or redness and breasts if nursing e. Increasing pain or swelling in episiotomy (stitches). In addition to the above instructions, the following additional should be followed: 1. No heavy lifting or straining (exercising) until after 6 week checkup. 2. Keep abdominal incision clean and dry: You may wear a dressing if more comfortable. 3. Make office appointment for 10 days after going home or as instructed by her doctor. Discharge Disposition: HOME SELF-CARE
[2022-07-03] MEDS: PRENATAL VIT-IRON-FOLIC ACID 1 EACH TABLET PO SCH (10:46)
[2022-07-03 17:29] VITALS: BP 120/70; PULSE 92; RESP 16; TEMP 98.5
[2022-07-04] MEDS: ACETAMINOPHEN TAB 500 MG TAB PO SCH ×2 (03:27→10:09)
[2022-07-04] MEDS: IBUPROFEN 600 MG TAB PO SCH (07:51)
[2022-07-04] MEDS: SENNOSIDES-DOCUSATE SODIUM 1 EACH TAB PO SCH (07:51)
== END 2022-07-04 13:23 | disposition home or self-care (01) | DRG 788 ==
LOC: 4FBP 06:16
PROVIDERS: ADMIT Obstetrics & Gynecology; ATTEND Obstetrics & Gynecology
PROC: 10D00Z1 Extraction of Products of Conception, Low, Open Approach (ICD-10-PCS; principal; 2022-07-02)
PROC: 4A0HXCZ Measurement of Products of Conception, Cardiac Rate, External Approach (ICD-10-PCS; 2022-07-02)
PROC: 3E033VJ Introduction of Other Hormone into Peripheral Vein, Percutaneous Approach (ICD-10-PCS; 2022-07-02)
PROC: 10907ZC Drainage of Amniotic Fluid, Therapeutic from Products of Conception, Via Natural or Artificial Opening (ICD-10-PCS; 2022-07-02)
DX: O99.824 Streptococcus B carrier state complicating childbirth (principal); O62.0 Primary inadequate contractions; O69.89X0 Labor and delivery complicated by other cord complications, not applicable or unspecified; R47.9 Unspecified speech disturbances; Z37.0 Single live birth; Z3A.39 39 weeks gestation of pregnancy; Z91.011 Allergy to milk products; Z86.16 Personal history of COVID-19
CPT/HCPCS: 85025; 86850; 86900; 86901

== ENCOUNTER 2023-03-20 22:44 | Emergency (ER) | payer OTHER ==
[2023-03-20 22:52] VITALS: RESP 20
[2023-03-20] MEDS ORDERED: KETOROLAC 15 MG/ML 1 ML VIAL IM STA (23:01)
--- NOTE | 2023-03-20 23:25 | XR ---
EXAMINATION TYPE: XR ankle complete LT DATE OF EXAM: 03/20/2023 COMPARISON: None HISTORY: Injury, pain TECHNIQUE: 3 view left ankle FINDINGS: Ankle mortise is intact. Soft tissues appear normal. No acute fractures or dislocations are evident. Follow up exams can be performed 7-10 days from acute trauma for continued pain. IMPRESSION: 1. No acute osseous abnormality left ankle.
--- NOTE | 2023-03-20 23:38 | ED ---
Lower Extremity Injury HPI - General Chief Complaint: Extremity Injury, Lower Stated Complaint: Left Ankle/foot Injury Time Seen by Provider: 03/20/23 22:57 Source: patient Mode of arrival: wheelchair Limitations: no limitations - History of Present Illness Initial Comments: Patient is a 28-year-old female presenting with chief complaint of left ankle pa in. Patient states that she twisted her ankle earlier today. Immediately following the incident there was minimal pain, however as the day went on she noticed increasing throbbing pain. She has pain with weightbearing and range of motion. No redness. Mild amount of swelling. No numbness or tingling. - Related Data Home Medications Medication Instructions Recorded Confirmed Acetaminophen Tab [Tylenol Tab] 1,000 mg PO Q6HR PRN 07/05/21 07/01/22 Elk-[id number]-Tpque Acid 1 cap PO DAILY 01/23/22 07/01/22 [-U Capsule (formulary)] Previous Rx's Medication Instructions Recorded Ibuprofen [Motrin] 600 mg PO Q6H #60 tab 07/03/22 oxyCODONE HCL [OxyIR] 5 mg PO Q4HR PRN #18 tab 07/03/22 Allergies Allergy/AdvReac Type Severity Reaction Status Date / Time Milk Containing Products AdvReac Diarrhea Verified 03/20/23 22:52 [Dairy] Review of Systems ROS Statement: Those systems with pertinent positive or pertinent negative responses have been documented in the HPI. ROS Other: All systems not noted in ROS Statement are negative. Past Medical History Past Medical History: No Reported History Additional Past Medical History / Comment(s): covid 07/16; Speech impediment History of Any Multi-Drug Resistant Organisms: None Reported Past Surgical History: Adenoidectomy, Tonsillectomy Past Anesthesia/Blood Transfusion Reactions: No Reported Reaction Past Psychological History: No Psychological Hx Reported Smoking Status: Never smoker Past Alcohol Use History: None Reported Past Drug Use History: None Reported - Past Family History Mother Family Medical History: No Reported History Additional Family Medical History / Comment(s): Heart disease General Exam Limitations: no limitations General appearance: alert, in no apparent distress Head exam: Present: atraumatic, normocephalic, normal inspection Eye exam: Present: normal appearance, EOMI. Absent: scleral icterus, periorbital swelling Neck exam: Present: normal inspection, full ROM Left Ankle exam: Present: full ROM, tenderness, swelling Neurological exam: Present: alert, oriented X3, CN II-XII intact Psychiatric exam: Present: normal affect, normal mood Skin exam: Present: warm, dry, intact, normal color. Absent: rash Course Vital Signs 03/20/23 03/21/23 22:50 00:26 Temperature 100.6 F H 99.3 F Pulse Rate 82 85 Respiratory 20 20 Rate Blood Pressure 138/79 156/89 O2 Sat by Pulse 98 96 Oximetry Medical Decision Making - Medical Decision Making Was pt. sent in by a medical professional or institution (, PA, WEB SITE DEVELOPER, urgent care, hospital, or shelter...) When possible be specific @ -No Did you speak to anyone other than the patient for history (EMS, parent, family, police, friend...)? What history was obtained from this source @ -No Did you review nursing and triage notes (agree or disagree)? Why? @ -I reviewed and agree with nursing and triage notes Were old charts reviewed (outside hosp., previous admission, EMS record, old EKG, old radiological studies, urgent care reports/EKG's, shelter records)? Report findings @ -No old charts were reviewed Differential Diagnosis (chest pain, altered mental status, abdominal pain women, abdominal pain men, vaginal bleeding, weakness, fever, dyspnea, syncope, headache, dizziness, GI bleed, back pain, seizure, CVA, palpatations, mental health, musculoskeletal)? @ -Differential Musculoskeletal Muscular strain, contusion, ligament sprain, fracture, arthritis, septic arthritis, bursitis, cellulitis, muscle spasm, nerve compression, DVT, arterial occlusion, herpes zoster, electrolyte abnormality, tumor.... This is not meant to be in all inclusive list EKG interpreted by me (3pts min.). @ -As above X-rays interpreted by me (1pt min.). @ -X-ray shows no fracture or dislocation CT interpreted by me (1pt min.). @ -None done U/S interpreted by me (1pt. min.). @ -None done What testing was considered but not performed or refused? (CT, X-rays, U/S, labs)? Why? @ -None What meds were considered but not given or refused? Why? @ -None Did you discuss the management of the patient with other professionals (professionals i.e. , PA, WEB SITE DEVELOPER, lab, RT, psych nurse, social contact worker, mounted police officer, teacher, international first officer, supportive employment case manager)? Give summary @ -No Was smoking cessation discussed for >3mins.? @ -No Was critical care preformed (if so, how long)? @ -No Were there social determinants of health that impacted care today? How? (Homelessness, low income, unemployed, alcoholism, drug addiction, transportation, low edu. Level, literacy, decrease access to med. care, long-term, rehab)? @ -No Was there de-escalation of care discussed even if they declined (Discuss DNR or withdrawal of care, Hospice)? DNR status @ -No What co-morbidities impacted this encounter? (DM, HTN, Smoking, COPD, CAD, Cancer, CVA, ARF, Chemo, Hep., AIDS, mental health diagnosis, sleep apnea, morbid obesity)? @ -None Was patient admitted / discharged? Hospital course, mention meds given and route, prescriptions, significant lab abnormalities, going to OR and other pertinent info. @ -This is a 28-year-old female presenting with chief complaint of left ankle pain post injury. X-ray shows no fracture or dislocation. Patient is educated on ankle sprain and supportive management home with rest, ice, compression, elevation as well as Motrin and Tylenol. Provided with crutches and an ankle stirrup splint. Follow-up with PCP. Report back to ER with any new or worsening symptoms. Discussed return parameters and answered all questions. Patient conveyed verbal understanding and agreed to the plan. I discussed this case in detail with my attending Dr. Bhat Undiagnosed new problem with uncertain prognosis? @ -No Drug Therapy requiring intensive monitoring for toxicity (Heparin, Nitro, Insulin, Cardizem)? @ -No Were any procedures done? @ -No Diagnosis/symptom? @ -Ankle sprain Acute, or Chronic, or Acute on Chronic? @ -Acute Uncomplicated (without systemic symptoms) or Complicated (systemic symptoms)? @ -Uncomplicated Side effects of treatment? @ -No Exacerbation, Progression, or Severe Exacerbation? @ -No Poses a threat to life or bodily function? How? (Chest pain, [place], [place], pneumonia, PE, COPD, DKA, ARF, appy, cholecystitis, CVA, Diverticulitis, Homicidal, Suicidal, threat to staff... and all critical care pts) @ -No Disposition Clinical Impression: Ankle sprain Disposition: HOME SELF-CARE Condition: Good Instructions (If sedation given, give patient instructions): Ankle Sprain (ED) Additional Instructions: Follow-up with PCP. Report back to ER with any new or worsening symptoms. Rest, ice, compress, and elevate ankle. Take Motrin and Tylenol as needed for pain control. Is patient prescribed a controlled substance at d/c from ED?: No Referrals: None,Stated [Primary Care Provider] - 1-2 days Time of Disposition: 23:38
[2023-03-21 00:28] VITALS: BP 156/89; PULSE 85; TEMP 99.3
== END 2023-03-21 00:28 | disposition home or self-care (01) ==
LOC: EC 22:44
DX: S93.409A Sprain of unspecified ligament of unspecified ankle, initial encounter (principal); Z86.16 Personal history of COVID-19; Z91.011 Allergy to milk products; X50.9XXA Other and unspecified overexertion or strenuous movements or postures, initial encounter
CPT/HCPCS: 73610; 99283; 96372; J1885

== ENCOUNTER 2023-12-30 20:39 | Emergency (ER) | payer OTHER ==
[2023-12-30 20:58] VITALS: RESP 18
--- NOTE | 2023-12-30 21:15 | ED ---
General Adult HPI - General Chief complaint: Fever Stated complaint: 8 weeks SOB fever fast heart rate Time Seen by Provider: 12/30/23 20:45 Source: patient, RN notes reviewed Mode of arrival: ambulatory Limitations: no limitations - History of Present Illness Initial comments: 28-year-old G2, P1 female presents to the emergency department for evaluation of fever. Patient is 8 weeks . Patient reports that yesterday patient around 10 PM she developed fever, headache, mild throat irritation. Patient reports taking 1000 mg of Tylenol around 3 hours ago. She also notes that her heart rate has been elevated. She denies any abdominal pain, cramping, vaginal bleeding. Denies any urinary symptoms. - Related Data Home Medications Medication Instructions Recorded Confirmed Acetaminophen Tab [Tylenol Tab] 1,000 mg PO Q6HR PRN 07/05/21 07/01/22 Xmm-Yeni-Sgkyk Acid 1 cap PO DAILY 01/23/22 07/01/22 [-U Capsule (formulary)] Previous Rx's Medication Instructions Recorded Ibuprofen [Motrin] 600 mg PO Q6H #60 tab 07/03/22 oxyCODONE HCL [OxyIR] 5 mg PO Q4HR PRN #18 tab 07/03/22 Oseltamivir [Tamiflu] 75 mg PO Q12HR #10 cap 12/30/23 Allergies Allergy/AdvReac Type Severity Reaction Status Date / Time Milk Containing Products AdvReac Diarrhea Verified 12/30/23 20:43 (Dairy) [Dairy] Review of Systems ROS Statement: Those systems with pertinent positive or pertinent negative responses have been documented in the HPI. ROS Other: All systems not noted in ROS Statement are negative. Past Medical History Past Medical History: No Reported History Additional Past Medical History / Comment(s): covid 07/16; Speech impediment History of Any Multi-Drug Resistant Organisms: None Reported Past Surgical History: Adenoidectomy, Tonsillectomy Past Anesthesia/Blood Transfusion Reactions: No Reported Reaction Past Psychological History: No Psychological Hx Reported Smoking Status: Never smoker Past Alcohol Use History: None Reported Past Drug Use History: None Reported - Past Family History Mother Family Medical History: No Reported History Additional Family Medical History / Comment(s): Heart disease General Exam Limitations: no limitations General appearance: alert, in no apparent distress Head exam: Present: atraumatic, normocephalic, normal inspection Eye exam: Present: normal appearance, PERRL, EOMI. Absent: scleral icterus, conjunctival injection, periorbital swelling ENT exam: Present: normal exam, mucous membranes moist, TM's normal bilaterally, normal external ear exam Neck exam: Present: normal inspection, full ROM. Absent: tenderness, meningismus, lymphadenopathy Respiratory exam: Present: normal lung sounds bilaterally. Absent: respiratory distress, wheezes, rales, rhonchi, stridor Cardiovascular Exam: Present: regular rate, normal rhythm, normal heart sounds. Absent: systolic murmur, diastolic murmur, rubs, gallop, clicks GI/Abdominal exam: Present: soft, normal bowel sounds. Absent: distended, tenderness, guarding, rebound, rigid Extremities exam: Present: normal inspection, full ROM, normal capillary refill. Absent: tenderness, pedal edema, joint swelling, calf tenderness Back exam: Present: normal inspection Neurological exam: Present: alert, oriented X3 Psychiatric exam: Present: normal affect, normal mood Skin exam: Present: warm, dry, intact, normal color. Absent: rash Course Vital Signs 12/30/23 20:41 Temperature 99.9 F H Pulse Rate 121 H Respiratory 18 Rate Blood Pressure 139/88 O2 Sat by Pulse 96 Oximetry Medical Decision Making - Medical Decision Making Was pt. sent in by a medical professional or institution (RUY Garcia, RESEARCH SOIL SCIENTIST, urgent care, hospital, or [facility]...) When possible be specific @ -No Did you speak to anyone other than the patient for history (EMS, parent, family, police, friend...)? What history was obtained from this source @ -No Did you review nursing and triage notes (agree or disagree)? Why? @ -I reviewed and agree with nursing and triage notes Were old charts reviewed (outside hosp., previous admission, EMS record, old EKG, old radiological studies, urgent care reports/EKG's, [facility] records)? Report findings @ -No old charts were reviewed Differential Diagnosis (chest pain, altered mental status, abdominal pain women, abdominal pain men, vaginal bleeding, weakness, fever, dyspnea, syncope, headache, dizziness, GI bleed, back pain, seizure, CVA, palpatations, mental health, musculoskeletal)? @ -COVID, Influenza, RSV, pneumonia, UTI, this list is not all inclusive EKG interpreted by me (3pts min.). @ -None X-rays interpreted by me (1pt min.). @ -None done CT interpreted by me (1pt min.). @ -None done U/S interpreted by me (1pt. min.). @ -None done What testing was considered but not performed or refused? (CT, X-rays, U/S, labs)? Why? @ -None What meds were considered but not given or refused? Why? @ -None Did you discuss the management of the patient with other professionals (professionals i.e. , PA, RESEARCH SOIL SCIENTIST, lab, RT, psych nurse, social service technician, nutritionists, teacher, policy officer, therapeutic case manager)? Give summary @ -No Was smoking cessation discussed for >3mins.? @ -No Was critical care preformed (if so, how long)? @ -No Were there social determinants of health that impacted care today? How? (Ho melessness, low income, unemployed, alcoholism, drug addiction, transportation, low edu. Level, literacy, decrease access to med. care, nursing home, rehab)? @ -No Was there de-escalation of care discussed even if they declined (Discuss DNR or withdrawal of care, Hospice)? DNR status @ -No What co-morbidities impacted this encounter? (DM, HTN, Smoking, COPD, CAD, Cancer, CVA, ARF, Chemo, Hep., AIDS, mental health diagnosis, sleep apnea, morbid obesity)? @ -None Was patient admitted / discharged? Hospital course, mention meds given and route, prescriptions, significant lab abnormalities, going to OR and other pertinent info. @ -Discharge. Patient presented to the emergency department for evaluation of headache, muscle aches, fever, difficulty breathing. Symptoms started yesterday. Patient reports that she is 8 weeks . Laboratory studies obtained. CBC unremarkable, CMP essentially unremarkable; normal UA, no evidence of infection. Patient was positive for influenza A. Influenza B, RSV, COVID, strep pharyngitis negative. Patient was given 1 L of normal saline in the emergency department. Patient also given another dose of Tylenol before discharge along with Tamiflu. Advised patient that Tamiflu is recommended for influenza and . 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 Advised to take medication to completion, to continue to take Tylenol. Advised follow-up to her INSURANCE POLICY ISSUE CLERK. Patient understanding agreeable with plan. Patient stable at time of discharge. Case discussed with Dr. Juan. Undiagnosed new problem with uncertain prognosis? @ -No Drug Therapy requiring intensive monitoring for toxicity (Heparin, Nitro, Ins ulin, Cardizem)? @ -No Were any procedures done? @ -No Diagnosis/symptom? @ -Influenza A Acute, or Chronic, or Acute on Chronic? @ -Acute Uncomplicated (without systemic symptoms) or Complicated (systemic symptoms)? @ -Complicated Side effects of treatment? @ -No Exacerbation, Progression, or Severe Exacerbation? @ -No Poses a threat to life or bodily function? How? (Chest pain, [place], [place], pneumonia, PE, COPD, DKA, ARF, appy, cholecystitis, CVA, Diverticulitis, Homicidal, Suicidal, threat to staff... and all critical care pts) @ -No - Lab Data Result diagrams: 12/30/23 22:00 12/30/23 22:00 Lab Results 12/30/23 12/30/23 12/30/23 Range/Units 21:25 22:00 22:00 WBC 5.6 (3.8-10.6) k/uL RBC 4.65 (3.80-5.40) m/uL Hgb 13.5 (11.4-16.0) gm/dL Hct 39.7 (34.0-46.0) % MCV 85.4 (80.0-100.0) fL MCH 29.0 (25.0-35.0) pg MCHC 33.9 (31.0-37.0) g/dL RDW 13.4 (11.5-15.5) % Plt Count 227 (150-450) k/uL MPV 7.9 Neutrophils % 74 % Lymphocytes % 11 % Monocytes % 11 % Eosinophils % 0 % Basophils % 1 % Neutrophils # 4.1 (1.3-7.7) k/uL Lymphocytes # 0.6 L (1.0-4.8) k/uL Monocytes # 0.6 (0-1.0) k/uL Eosinophils # 0.0 (0-0.7) k/uL Basophils # 0.0 (0-0.2) k/uL Sodium 135 L (137-145) mmol/L Potassium 3.7 (3.5-5.1) mmol/L Chloride 105 (98-107) mmol/L Carbon Dioxide 21 L (22-30) mmol/L Anion Gap 9 mmol/L BUN 10 (7-17) mg/dL Creatinine 0.65 (0.52-1.04) mg/dL Est GFR (CKD-EPI)AfAm >90 (>60 ml/min/1.73 sqM) Est GFR (CKD-EPI)NonAf >90 (>60 ml/min/1.73 sqM) Glucose 95 (74-99) mg/dL Plasma Lactic Acid Caesar (0.7-2.0) mmol/L Calcium 8.9 (8.4-10.2) mg/dL Total Bilirubin 0.2 (0.2-1.3) mg/dL AST 22 (14-36) U/L ALT 19 (4-34) U/L Alkaline Phosphatase 72 (38-126) U/L Total Protein 7.1 (6.3-8.2) g/dL Albumin 3.8 (3.5-5.0) g/dL Urine Color Light Yellow Urine Appearance Clear (Clear) Urine pH 7.0 (5.0-8.0) Ur Specific [place] 1.023 (1.001-1.035) Urine Protein Negative (Negative) Urine Glucose (UA) Negative (Negative) Urine Ketones Negative (Negative) Urine Blood Negative (Negative) Urine Nitrite Negative (Negative) Urine Bilirubin Negative (Negative) Urine Urobilinogen <2.0 (<2.0) mg/dL Ur Leukocyte Esterase Negative (Negative) Influenza Type A (PCR) (Not Detectd) Influenza Type B (PCR) (Not Detectd) RSV (PCR) (Not Detectd) SARS-CoV-2 (PCR) (Not Detectd) Group A Strep (PCR) (Not Detectd) 12/30/23 12/30/23 12/30/23 Range/Units 22:00 22:00 22:05 WBC (3.8-10.6) k/uL RBC (3.80-5.40) m/uL Hgb (11.4-16.0) gm/dL Hct (34.0-46.0) % MCV (80.0-100.0) fL MCH (25.0-35.0) pg MCHC (31.0-37.0) g/dL RDW (11.5-15.5) % Plt Count (150-450) k/uL MPV Neutrophils % % Lymphocytes % % Monocytes % % Eosinophils % % Basophils % % Neutrophils # (1.3-7.7) k/uL Lymphocytes # (1.0-4.8) k/uL Monocytes # (0-1.0) k/uL Eosinophils # (0-0.7) k/uL Basophils # (0-0.2) k/uL Sodium (137-145) mmol/L Potassium (3.5-5.1) mmol/L Chloride (98-107) mmol/L Carbon Dioxide (22-30) mmol/L Anion Gap mmol/L BUN (7-17) mg/dL Creatinine (0.52-1.04) mg/dL Est GFR (CKD-EPI)AfAm (>60 ml/min/1.73 sqM) Est GFR (CKD-EPI)NonAf (>60 ml/min/1.73 sqM) Glucose (74-99) mg/dL Plasma Lactic Acid Caesar 1.2 (0.7-2.0) mmol/L Calcium (8.4-10.2) mg/dL Total Bilirubin (0.2-1.3) mg/dL AST (14-36) U/L ALT (4-34) U/L Alkaline Phosphatase (38-126) U/L Total Protein (6.3-8.2) g/dL Albumin (3.5-5.0) g/dL Urine Color Urine Appearance (Clear) Urine pH (5.0-8.0) Ur Specific [place] (1.001-1.035) Urine Protein (Negative) Urine Glucose (UA) (Negative) Urine Ketones (Negative) Urine Blood (Negative) Urine Nitrite (Negative) Urine Bilirubin (Negative) Urine Urobilinogen (<2.0) mg/dL Ur Leukocyte Esterase (Negative) Influenza Type A (PCR) Detected A (Not Detectd) Influenza Type B (PCR) Not Detected (Not Detectd) RSV (PCR) Not Detected (Not Detectd) SARS-CoV-2 (PCR) Not Detected (Not Detectd) Group A Strep (PCR) NOT DETECTED (Not Detectd) Disposition Clinical Impression: Influenza A Disposition: HOME SELF-CARE Condition: Stable Instructions (If sedation given, give patient instructions): Influenza (ED) Additional Instructions: Please apple picking supervisor your medication and take to completion. Follow-up with your INSURANCE POLICY ISSUE CLERK. Take Tylenol for fever. Return to the emergency department for new or worsening symptoms. Prescriptions: Oseltamivir [Tamiflu] 75 mg PO Q12HR #10 cap Is patient prescribed a controlled substance at d/c from ED?: No Referrals: None,Stated [REFERRING] - 1-2 days
[2023-12-30] MEDS: SODIUM CHLORIDE 0.9% 1,000 ML IV STA (21:54)
[2023-12-30 22:13] LABS: Basophils % (A) 1 %; Eosinophils % (A) 0 %; HCT 39.7 % (34.0-46.0); HGB 13.5 gm/dL (11.4-16.0); Lymphocytes # (A) 0.6 k/uL (1.0-4.8); Lymphocytes % (A) 11 %; MCHC 33.9 g/dL (31.0-37.0); MCV 85.4 fL (80.0-100.0); Mean Platelet Volume 7.9; Monocytes # (A) 0.6 k/uL (0-1.0); Monocytes % (A) 11 %; Neutrophils # (A) 4.1 k/uL (1.3-7.7); Neutrophils % (A) 74 %; Platelet Count 227 k/uL (150-450); RBC 4.65 m/uL (3.80-5.40); RDW 13.4 % (11.5-15.5); WBC 5.6 k/uL (3.8-10.6)
[2023-12-30 22:20] LABS: Appearance,Urine Clear (Clear); Bilirubin,Urine Negative (Negative); Blood,Urine Negative (Negative); Color,Urine Light Yellow; Glucose,Urine (UA) Negative (Negative); Ketones,Urine Negative (Negative); Leukocyte Esterase,Urine Negative (Negative); Nitrite,Urine Negative (Negative); Protein,Urine Negative (Negative); Specific Gravity,Urine 1.023 (1.001-1.035); Urobilinogen,Urine <2.0 mg/dL (<2.0)
[2023-12-30 22:23] LABS: ALT 19 U/L (4-34); AST 22 U/L (14-36); African American GFR (CKD) >90 (>60 ml/min/1.73 sqM); Albumin 3.8 g/dL (3.5-5.0); Alkaline Phosphatase 72 U/L (38-126); Anion Gap 9 mmol/L; Blood Urea Nitrogen 10 mg/dL (7-17); Calcium 8.9 mg/dL (8.4-10.2); Carbon Dioxide 21 mmol/L (22-30); Chloride 105 mmol/L (98-107); Glucose 95 mg/dL (74-99); Non-African American GFR(CKD) >90 (>60 ml/min/1.73 sqM); Potassium 3.7 mmol/L (3.5-5.1); Sodium 135 mmol/L (137-145); Total Bilirubin 0.2 mg/dL (0.2-1.3); Total Protein 7.1 g/dL (6.3-8.2)
[2023-12-30] MEDS: OSELTAMIVIR 75 MG CAP PO STA (23:29)
[2023-12-30] MEDS: ACETAMINOPHEN TAB 325 MG TAB PO STA (23:29)
[2023-12-31 00:49] VITALS: BP 122/70; PULSE 92; TEMP 98.5
== END 2023-12-31 00:16 | disposition home or self-care (01) ==
LOC: EC 20:39
DX: O99.511 Diseases of the respiratory system complicating pregnancy, first trimester (principal); J10.1 Influenza due to other identified influenza virus with other respiratory manifestations; Z91.011 Allergy to milk products; Z86.16 Personal history of COVID-19; Z3A.08 8 weeks gestation of pregnancy
CPT/HCPCS: 36415; 80053; 81003; 83605; 85025; 87636; 87651; 96360; 99283

== ENCOUNTER 2024-04-21 15:21 | Outpatient (CLI) | payer OTHER ==
[2024-04-21] MEDS: LACTATED RINGERS 1,000 ML IV ONE (16:05)
[2024-04-21 16:08] LABS: Appearance,Urine Turbid (Clear); Bacteria,Urine Many /hpf; Bilirubin,Urine Negative (Negative); Blood,Urine Negative (Negative); Color,Urine Light Yellow; Glucose,Urine (UA) Negative (Negative); Ketones,Urine Negative (Negative); Leukocyte Esterase,Urine Negative (Negative); Nitrite,Urine Negative (Negative); PH, Urine 8.5 (5.0-8.0); Protein,Urine Trace (Negative); Squamous Epithelial Cell,Urine 2 /hpf (0-4); Urobilinogen,Urine <2.0 mg/dL (<2.0); WBC,Urine 2 /hpf (0-5)
[2024-04-21] MEDS: ONDANSETRON 4 MG/2 ML VIAL IVP STA (16:23)
[2024-04-21] MEDS: ACETAMINOPHEN IV (For NPO) 1,000 MG in EMPTY BAG 1 BAG IVPB ONE (16:23)
[2024-04-21 16:48] LABS: Protein/Creatinine Ratio,Urine 0.128
[2024-04-21 16:56] LABS: Basophils % (A) 0 %; Eosinophils # (A) 0.1 k/uL (0-0.7); Eosinophils % (A) 1 %; HGB 12.3 gm/dL (11.4-16.0); Lymphocytes # (A) 1.3 k/uL (1.0-4.8); Lymphocytes % (A) 9 %; MCH 27.9 pg (25.0-35.0); MCHC 32.3 g/dL (31.0-37.0); MCV 86.3 fL (80.0-100.0); Mean Platelet Volume 8.3; Monocytes # (A) 0.8 k/uL (0-1.0); Monocytes % (A) 6 %; Neutrophils # (A) 12.3 k/uL (1.3-7.7); Neutrophils % (A) 84 %; Platelet Count 295 k/uL (150-450); RDW 13.5 % (11.5-15.5); WBC 14.7 k/uL (3.8-10.6)
[2024-04-21 17:13] LABS: ALT 15 U/L (4-34); AST 18 U/L (14-36); African American GFR (CKD) >90 (>60 ml/min/1.73 sqM); Blood Urea Nitrogen 7 mg/dL (7-17); LDH 166 U/L (120-246); Non-African American GFR(CKD) >90 (>60 ml/min/1.73 sqM); Uric Acid 4.2 mg/dL (3.7-7.4)
[2024-04-21 17:58] VITALS: BP 146/81; PULSE 92; RESP 17; TEMP 98
--- NOTE | 2024-05-16 16:05 | P.MSEPDOC ---
Presenting Problems - Arrival Data Date of Arrival on Unit: 04/21/24 Time of Arrival on Unit: 15:21 Mode of Transport: Wheelchair - Complaint OB-Reason for Admission/Chief Complaint: Pain Comment: pt presents to triage for right flank and right lower abdominal pain, rating 10/10, pt crying and can hardly sit still, c/o nausea, vomiting lg amount of emesis Medical History - Information : 2 Para: 1 Term: 1 : 0 Abortions: Spontaneous or Elective: 0 Number of Living Children: 1 - Gestational Age Gestational Age by CARLOS (wks/days): 24 Weeks and 2 Days Review of Systems - Review of Systems Constitutional: No problems Breast: No problems ENT: No problems Cardiovascular: No problems Respiratory: No problems Gastrointestinal: No problems Genitourinary: No problems Musculoskeletal: No problems Neurological: No problems Skin: No problems Vital Signs - Temperature Temperature: 98.0 F Temperature Source: Temporal Artery Scan - Pulse Right Brachial Pulse Rate: 92 Pulse Assessment Method: Automatic Cuff - Respirations Respiratory Rate: 17 Oxygen Delivery Method: Room Air O2 Sat by Pulse Oximetry: 99 - Blood Pressure Right Arm Blood Pressure: 146/81 Blood Pressure Mean: 102 Blood Pressure Source: Automatic Cuff Medical Screen Scoring - Cervical Exam Dilation (cm): 0 Membranes: Intact - Uterine Contractions Resting: Soft to palpation - Assessment - Baby A Baseline FHR: 135 Heart Rate - NICHD Category: Category I (Normal) Physician Notification - Notification Comment Comment: PIH workup done, 1 liter of LR, 1 dose of zofran and ofirmive given, cat 1 fht's, pain decreased down to 4/10 after meds, all labs wnl, pt discharged home with orders to follow up with OB when possible and increase fluid intake to flush kidneys Maternal Triage Index - Maternal Triage Index Presenting for scheduled procedure w/no complaint: No - Stat/Priority 1 Stat Priority 1: No - Urgent/Priority 2 Urgent Priority 2: Yes Provider Notified: Janiya Shepard Provider Notified Time: 15:48 Criteria Met for Priority 2: pt presents to triage for right flank and right lower abdominal pain, rating 10/10, pt crying and can hardly sit still, c/o nausea, vomiting lg amount of emesis - Prompt/Priority 3 Prompt Priority 3: No - Non-Urgent/Priority 4 Non-Urgent Priority 4: No Disposition - Disposition OB Disposition: Triage, Discharge to home, Written follow up instructions reviewed Discharge Date: 04/21/24 Discharge Time: 17:30 I agree with the RN Medical Screening Exam: Yes Physician's MSE Comment: I have neither seen nor examined the patient Case reviewed; plan agreed upon as documented in EMR&OBIX.: Yes Diagnosis: MATERNAL CARE FOR PROBLEM, UNSP, SECOND * DO NOT USE *
== END 2024-04-21 17:38 | disposition home or self-care (01) ==
LOC: FBPOP 15:21
PROVIDERS: ATTEND Obstetrics & Gynecology
DX: O26.892 Other specified pregnancy related conditions, second trimester (principal); R10.31 Right lower quadrant pain; O21.9 Vomiting of pregnancy, unspecified; Z3A.24 24 weeks gestation of pregnancy; Z91.011 Allergy to milk products
CPT/HCPCS: 96361; 96374; 36415; 82570; 84156; 82565; 83615; 84450; 84460; 84520; 84550; 85025; 81001; G0463; J2405; J0131; 99215

== ENCOUNTER 2024-06-13 14:50 | Outpatient (CLI) | payer OTHER | END 2024-06-13 17:30 | LOC: FBPOP 14:50 | PROVIDERS: ATTEND Obstetrics & Gynecology Obstetrics | CPT/HCPCS: 59025; 99213 ==

== ENCOUNTER 2024-07-08 20:25 | Outpatient (CLI) | payer OTHER ==
[2024-07-08] MEDS: ONDANSETRON 4 MG/2 ML VIAL IVP STA (21:17)
[2024-07-08] MEDS: LACTATED RINGERS 1,000 ML IV ONE (21:18)
[2024-07-08 21:27] LABS: Appearance,Urine Cloudy (Clear); Bacteria,Urine Many /hpf; Bilirubin,Urine Negative (Negative); Blood,Urine Small (Negative); Color,Urine Yellow; Glucose,Urine (UA) Negative (Negative); Ketones,Urine Trace (Negative); Leukocyte Esterase,Urine Negative (Negative); Mucus,Urine Few /hpf; Nitrite,Urine Negative (Negative); Protein,Urine Trace (Negative); RBC,Urine 19 /hpf (0-5); Specific Gravity,Urine 1.024 (1.001-1.035); Squamous Epithelial Cell,Urine 2 /hpf (0-4); Urobilinogen,Urine <2.0 mg/dL (<2.0); WBC,Urine <1 /hpf (0-5)
[2024-07-08 23:16] VITALS: BP 130/60; PULSE 92; RESP 18; TEMP 96.4
--- NOTE | 2024-08-11 09:24 | P.MSEPDOC ---
Presenting Problems - Arrival Data Date of Arrival on Unit: 07/08/24 Time of Arrival on Unit: 20:25 Mode of Transport: Ambulatory - Complaint OB-Reason for Admission/Chief Complaint: Acute Nausea/Vomiting Comment: Patient complaint of N/D Medical History - Information : 2 Para: 1 Term: 1 : 0 Abortions: Spontaneous or Elective: 0 Number of Living Children: 1 - Gestational Age Gestational Age by CARLOS (wks/days): 35 Weeks and 3 Days Review of Systems - Review of Systems Constitutional: No problems Breast: No problems ENT: No problems Cardiovascular: No problems Respiratory: No problems Gastrointestinal: Diarrhea Genitourinary: No problems Musculoskeletal: No problems Neurological: No problems Skin: No problems Comment: Patient complaint of diarrhea Vital Signs - Temperature Temperature: 96.4 F Temperature Source: Temporal Artery Scan - Pulse Pulse Oximetery Pulse Rate: 92 Pulse Assessment Method: Pulse Oximetry - Respirations Respiratory Rate: 18 Oxygen Delivery Method: Room Air O2 Sat by Pulse Oximetry: 96 - Blood Pressure Right Arm Blood Pressure: 130/60 Blood Pressure Mean: 83 Blood Pressure Source: Automatic Cuff Medical Screen Scoring - Assessment - Baby A Baseline FHR: 120 Heart Rate - NICHD Category: Category I (Normal) NST: Reactive Physician Notification - Physician Notified Physician Notified Date: 07/08/24 Physician Notified Time: 20:53 Physician: Johana Messina New Order Received: Yes (Order for IV bolus, one time zofran, and urinalysis) - Notification Comment Comment: notified of patient status, vitals WNL, reactive NST, no ctx, pt complaint of N/D for 3 days. Maternal Triage Index - Maternal Triage Index Presenting for scheduled procedure w/no complaint: No - Stat/Priority 1 Stat Priority 1: No - Urgent/Priority 2 Urgent Priority 2: No - Prompt/Priority 3 Prompt Priority 3: No - Non-Urgent/Priority 4 Non-Urgent Priority 4: Yes Criteria Met for Priority 4: Patient came in with complaints of N/D the past 3 days. Disposition - Disposition OB Disposition: Discharge to home Discharge Date: 07/08/24 Discharge Time: 21:50 I agree with the RN Medical Screening Exam: Yes Case reviewed; plan agreed upon as documented in EMR&OBIX.: Yes Diagnosis: RELATED CONDITIONS, UNSPECIFIED, THIRD TRIMESTER
== END 2024-07-08 21:50 | disposition home or self-care (01) ==
LOC: FBPOP 20:25
PROVIDERS: ATTEND Obstetrics & Gynecology Obstetrics
CPT/HCPCS: 59025; 81001; 96360; 96375; 99214